=== PATIENT | male | born 1935 | race Caucasian/White ===

== ENCOUNTER 2017-04-24 19:34 | Inpatient (IN) | payer MEDICARE ==
[~2017-04-24] VITALS: Ht 182.9 cm; Wt 82.2 kg
[~2017-04-24 19:34] MED LIST: AMLO10 PO; ASPI81 PO; AVOD0.5C PO; MEVA40TA6 PO; TAB-TAB PO; TERA5CAP34 PO
[2017-04-24 19:35] VITALS: BP 167/84; PULSE 84; RESP 18; TEMP 98; O2SAT 97
[2017-04-24] MEDS ORDERED: FINA5TAB2 PO (19:49)
[2017-04-24] MEDS ORDERED: TERA5CAP3 PO (19:49)
[2017-04-24] MEDS ORDERED: MULTTAB67 PO (19:49)
[2017-04-24] MEDS ORDERED: ASPI81CH CHEW (19:49)
[2017-04-24] MEDS ORDERED: METO25TA3 PO (19:49)
--- NOTE | 2017-04-24 19:57 | PD ---
HPI Chief Complaint: Respiratory Symptoms Time Seen by Provider: 19:49 Travel History International Travel<30 days: No Contact w/Intl Traveler<30days: No Traveled to known affect area: No History of Present Illness HPI 81-year-old male here for evaluation of shortness of breath. Apparently the patient has had exertional dyspnea for the last month. He was seen by warp scouring vat tender Dr. Robert's PA and studies were ordered such as echocardiogram and a stress test, however these tests have not yet been performed. Patient's shortness of breath worsened today, and he noted his blood pressure was 100 systolic. He feels short of breath at rest, worse with exertion. He has an occasional nonproductive cough. He denies chest pain. No fevers or recent illness. No history of DVT or PE. PFSH Past Medical History Hypertension: Yes ?: Not Social History Alcohol Use: No Tobacco Use: No Substance Use: No Allergies-Medications (Allergen,Severity, Reaction): Coded Allergies: ANT Inhibitors (Verified Allergy, Intermediate, 04/24/17) Calcium Channel Blocking Agent Dilt (Verified Allergy, Intermediate, 04/24) Reported Meds & Prescriptions Reported Meds & Active Scripts Active Reported Multiple Vitamin 1 Tab 1 Tab PO DAILY Terazosin (Terazosin HCl) 5 Mg Cap 5 Mg PO HS Metoprolol Tartrate 25 Mg Tab 25 Mg PO DAILY Finasteride 5 Mg Tab 5 Mg PO DAILY Do not crush. Aspirin 81 Mg Chew 81 Mg CHEW DAILY Review of Systems Except as stated in HPI: all other systems reviewed are Neg Physical Exam Narrative GENERAL: Well-developed, well-nourished, comfortable, no apparent distress. SKIN: Focused skin assessment warm/dry. HEAD: Atraumatic. Normocephalic. EYES: Pupils equal and round. No scleral icterus. No injection or drainage. ENT: Mucous membranes pink and moist. NECK: Trachea midline. No JVD. CARDIOVASCULAR: Regular rate and rhythm. RESPIRATORY: No accessory muscle use. Clear to auscultation. Breath sounds equal bilaterally. GASTROINTESTINAL: Abdomen soft, non-tender, nondistended. MUSCULOSKELETAL: No obvious deformities. No clubbing. No cyanosis. Mild bilateral pedal edema. No calf tenderness. NEUROLOGICAL: Awake and alert. No obvious cranial nerve deficits. Motor grossly within normal limits. Normal speech. PSYCHIATRIC: Appropriate mood and affect; insight and judgment normal. Data Data Last Documented VS Vital Signs Date Time Temp Pulse Resp B/P (MAP) Pulse Ox O2 Delivery O2 Flow Rate FiO2 04/24/17 21:04 78 16 134/66 (88) 97 Room Air 04/24/17 20:10 2.00 04/24/17 19:35 98.0 Orders Orders Complete Blood Count With Diff (04/24/17 19:54) Comprehensive Metabolic Panel (04/24/17 19:54) B-Type Natriuretic Peptide (04/24/17 19:54) D-Dimer (04/24/17 19:54) Act Partial Throm Time (Ptt) (04/24/17 19:54) Prothrombin Time / Inr (Pt) (04/24/17 19:54) Ckmb (Isoenzyme) Profile (04/24/17 19:54) Troponin I (04/24/17 19:54) Iv Access Insert/Monitor (04/24/17 19:54) Electrocardiogram (04/24/17 19:54) Ecg Monitoring (04/24/17 19:54) Oximetry (04/24/17 19:54) Oxygen Administration (04/24/17 19:54) Chest, Single Ap (04/24/17 19:54) Sodium Chloride 0.9% Flush (Ns Flush) (04/24/17 20:00) Ct Pulmonary Angiogram (04/24/17 21:13) Type And Screen (04/24/17 21:46) Hemoglobin (Hgb) (04/24/17 21:47) Iodixanol 320 Inj (Rad Ct) (Visipaque 32 (04/24/17 22:17) Red Blood Cells (Rbc) (04/24/17 22:36) Blood Product Administration (04/24/17 22:36) Labs Laboratory Tests Test 04/24/17 20:10 04/24/17 21:25 04/24/17 22:10 Prothrombin Time 11.2 SEC Prothromb Time International Ratio 1.0 RATIO Activated Partial Thromboplast Time 22.2 SEC D-Dimer Quantitative (PE/DVT) 1.75 MG/L FEU Blood Urea Nitrogen 31 MG/DL Creatinine 1.40 MG/DL Random Glucose 115 MG/DL Total Protein 6.9 GM/DL Albumin 3.6 GM/DL Calcium Level 8.9 MG/DL Alkaline Phosphatase 40 U/L Aspartate Amino Transf (AST/SGOT) 20 U/L Alanine Aminotransferase (ALT/SGPT) 29 U/L Total Bilirubin 2.1 MG/DL Sodium Level 137 MEQ/L Potassium Level 3.9 MEQ/L Chloride Level 105 MEQ/L Carbon Dioxide Level 24.5 MEQ/L Anion Gap 8 MEQ/L Estimat Glomerular Filtration Rate 48 ML/MIN Total Creatine Kinase 56 U/L Troponin I LESS THAN 0.02 NG/ML B-Type Natriuretic Peptide 331 PG/ML White Blood Count 3.2 TH/MM3 Red Blood Count 2.15 MIL/MM3 Hemoglobin 5.8 GM/DL 6.0 GM/DL Hematocrit 17.8 % Mean Corpuscular Volume 82.8 FL Mean Corpuscular Hemoglobin 26.9 PG Mean Corpuscular Hemoglobin Concent 32.4 % Red Cell Distribution Width 20.9 % Platelet Count 55 TH/MM3 Mean Platelet Volume 7.0 FL CBC Comment AUTO DIFF MDM Medical Decision Making Medical Screen Exam Complete: Yes Emergency Medical Condition: Yes Differential Diagnosis ACS, CHF, pulmonary edema, pneumothorax, pericarditis, PE, pneumonia Narrative Course Vital signs show heart rate 84, blood pressure 167/84, pulse ox 97% on room air , oral temp of 98F. CBC shows WBC 3.2, hemoglobin 5.8, hematocrit 17.8, platelets 55. CMP is remarkable for BUN 31, creatinine 1.4, GFR 48. Cardiac enzymes are negative. BNP is 331. D-dimer is 1.75. CT pulmonary angiogram: CONCLUSION: No evidence of pulmonary embolism. Mild scarring or atelectasis in the right lung. Possible gallbladder wall thickening Stool is heme negative and brown. The patient and the patient's significant other were made aware of all findings. Case discussed with [facility] Dr. Morrow. Patient will be transfused 2 units of PRBCs and will be admitted for further evaluation of pancytopenia, symptomatic anemia. He would like patient to be admitted to the patient's primary care physician Dr. Celestine Santos Diagnosis Primary Impression: Pancytopenia Additional Impressions: Symptomatic anemia Dyspnea on exertion Admitting Information Admitting Physician Requests: Admit Ankit Matthew MD Apr 24, 2017 19:57
--- NOTE | 2017-04-24 20:28 | RADRPT ---
EXAM DATE/TIME: 04/24/2017 20:12 [facility] COMPARISON: No previous studies available for comparison. INDICATIONS : Shortness of breath. MEDICAL HISTORY : Hypertension. SURGICAL HISTORY : None. ENCOUNTER: Initial ACUITY: 2 weeks PAIN SCORE: 0/10 LOCATION: Bilateral chest FINDINGS: There is mild focal infiltrate in the medial right lung base. Left lung is grossly clear. Cardiac con tours are satisfactory. CONCLUSION: Mild right lung base infiltrate Ar Hampton MD on April 24, 2017 at 20:25 Board Certified Radiologist. This report was verified electronically.
[2017-04-24 20:50] LABS: CHLORIDE 105 MEQ/L (98-107); POTASSIUM 3.9 MEQ/L (3.5-5.1); SODIUM (NA) 137 MEQ/L (136-145)
[2017-04-24 20:54] LABS: ANION GAP 8 MEQ/L (5-15); BICARBONATE 24.5 MEQ/L (21.0-32.0); BLOOD UREA NITROGEN 31 MG/DL (7-18)
[2017-04-24 20:57] LABS: ALT (GPT) 29 U/L (12-78); AST (GOT) 20 U/L (15-37); GLOMERULAR FILTRATION RATE 48 ML/MIN (>89)
[2017-04-24 20:58] LABS: TOTAL BILIRUBIN ADULT 2.1 MG/DL (0.2-1.0)
[2017-04-24 21:00] LABS: ALKALINE PHOSPHATASE 40 U/L (45-117)
[2017-04-24 21:02] LABS: CREATINE KINASE 56 U/L (39-308)
[2017-04-24 21:04] VITALS: BP 134/66; PULSE 78; RESP 16; O2SAT 97
[2017-04-24 21:08] LABS: APTT (PATIENT) 22.2 SEC (24.3-30.1); PROTHROMBIN TIME - PATIENT 11.2 SEC (9.8-11.6)
[2017-04-24 21:35] LABS: MEAN CELL VOLUME 82.8 FL (80.0-100.0); MEAN CORPUSCULAR HEMOGLOBIN 26.9 PG (27.0-34.0); MEAN CORPUSCULAR HGB CONC 32.4 % (32.0-36.0); PLATELET COUNT 55 TH/MM3 (150-450); RED BLOOD COUNT 2.15 MIL/MM3 (4.50-5.90); RED CELL DISTRIBUTION WIDTH 20.9 % (11.6-17.2); WHITE BLOOD COUNT 3.2 TH/MM3 (4.0-11.0)
[2017-04-24 21:45] LABS: HEMO FLAGS AUTO DIFF
[2017-04-24 21:46] LABS: HEMATOCRIT 17.8 % (39.0-51.0)
[2017-04-24] MEDS ORDERED: IODIXANOL 320 MG/ML 10 ML VIAL (for Rad CT) IVCONTRAST ONE (22:17)
--- NOTE | 2017-04-24 22:27 | RADRPT ---
EXAM DATE/TIME: 04/24/2017 21:54 [facility] COMPARISON: No previous studies available for comparison. INDICATIONS : Chest pain. Shortness of breath. IV CONTRAST: 50 cc Visipaque (iodixanol) IV RADIATION DOSE: 15.33 CTDIvol (mGy) MEDICAL HISTORY : Hypertension. SURGICAL HISTORY : None. ENCOUNTER: Initial ACUITY: 1 day PAIN SCALE: 2/10 LOCATION: Bilateral chest TECHNIQUE: Volumetric scanning of the chest was performed using a pulmonary embolism protocol MIP images were re constructed. Using automated exposure control and adjustment of the mA and/or kV according to patien t size, radiation dose was kept as low as reasonably achievable to obtain optimal diagnostic quality images. DICOM format image data is available electronically for review and comparison. Follow-up recommendations for detected pulmonary nodules are based at a minimum on nodule size and pa tient risk factors according to Fleischner Society Guidelines. FINDINGS: PULMONARY ARTERIES: No filling defects are seen in the pulmonary arteries through the segmental level. LUNGS: Mild atelectasis or scarring along the fissures on the right. Minimal atelectasis or scarring in the posterior right lung base. PLEURAE: There is no pleural thickening or pleural effusion. MEDIASTINUM: There is good visualization of the great vessels of the middle mediastinum. No evidence of mediastin al or hilar adenopathy/mass. Coronary calcifications noted. Small hiatal hernia. MUSCULOSKELETAL: Within normal limits for patient age. MISCELLANEOUS: In the visualized upper abdomen, incompletely seen gallbladder appearance suspicious for mild wall th ickening. Multiple left renal cysts. CONCLUSION: No evidence of pulmonary embolism. Mild scarring or atelectasis in the right lung. Possible gallbladder wall thickening Ar Hampton MD on April 24, 2017 at 22:18 Board Certified Radiologist. This report was verified electronically.
[2017-04-24 22:30] VITALS: BP 140/72; PULSE 78; RESP 16; O2SAT 98
[2017-04-24 22:48] LABS: CORRECTED NUCLEATED RBC 3 /100 WBC (0-0); EOSINOPHILS 1 % (0-4); METAMYELOCYTES 5 % (0-1); MYELOCYTES 1 % (0-0); NEUTROPHIL # MANUAL DIFF 1.7 TH/MM3 (1.8-7.7); POLYS (SEG NEUTROPHILS) 47 % (16-70); WBC DIFF SAMPLE 100
[2017-04-24 22:49] LABS: ACANTHOCYTES 2+ (NORMAL); BURR CELLS 1+ (NORMAL); CRENATED RBCS 1+ (NORMAL); KERATOCYTES 2+ (NORMAL); OVALOCYTES 1+ (NORMAL)
[2017-04-24 22:50] LABS: PLATELET ESTIMATE SMEAR LOW (NORMAL); PLATELET MORPHOLOGY NORMAL (NORMAL); SCAN/DIFF FINAL DIFF MANUAL
[2017-04-25] VITALS (13 sets, daily range): BP systolic 131–165; BP diastolic 62–80; PULSE 69–90; RESP 16–24; TEMP 98.2–98.7; O2SAT 96–98
[2017-04-25] MEDS: SODIUM CHLORIDE 0.9% FLUSH 10 ML FLUSH IVF PRN ×2 (01:23→21:56)
[2017-04-25 01:46] LABS: RETIC % 2.6 % (0.4-3.0)
[2017-04-25 01:49] LABS: REVIEW FLAG FINAL
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
[2017-04-25] MEDS: FINASTERIDE 5 MG TAB PO SCH (09:13)
[2017-04-25] MEDS: MULTIVITAMIN TAB PO SCH (09:13)
[2017-04-25 10:27] LABS: BASOPHIL % 0.9 % (0.0-2.0); EOSINOPHIL % 0.6 % (0.0-4.0); HEMATOCRIT 26.3 % (39.0-51.0); LYMPH % 30.6 % (9.0-44.0); MEAN CELL VOLUME 81.8 FL (80.0-100.0); MEAN CORPUSCULAR HEMOGLOBIN 27.9 PG (27.0-34.0); MEAN CORPUSCULAR HGB CONC 34.2 % (32.0-36.0); MONO % 8.6 % (0.0-8.0); NEUT % 59.3 % (16.0-70.0); PLATELET COUNT 65 TH/MM3 (150-450); RED BLOOD COUNT 3.21 MIL/MM3 (4.50-5.90); RED CELL DISTRIBUTION WIDTH 18.3 % (11.6-17.2); WHITE BLOOD COUNT 3.3 TH/MM3 (4.0-11.0)
[2017-04-25 10:30] LABS: CHLORIDE 107 MEQ/L (98-107); SODIUM (NA) 140 MEQ/L (136-145)
[2017-04-25 10:34] LABS: ANION GAP 9 MEQ/L (5-15); BLOOD UREA NITROGEN 23 MG/DL (7-18)
[2017-04-25 10:35] LABS: HEMO FLAGS AUTO DIFF
[2017-04-25 10:37] LABS: ALT (GPT) 30 U/L (12-78); AST (GOT) 23 U/L (15-37); GLOMERULAR FILTRATION RATE 64 ML/MIN (>89)
[2017-04-25 10:59] LABS: BLOOD, URINE NEG (NEG); GLUCOSE,URINE NEG (NEG); KETONE, URINE NEG (NEG); NITRITE,URINE NEG (NEG); PH, URINE 5.5 (5.0-8.5)
[2017-04-25 11:06] LABS: METHOD OF COLLECTION CLEAN CATCH; URINE COLOR YELLOW (YELLW/STRAW)
[2017-04-25 11:07] LABS: COMMENT (UR) CULT NOT INDICATED; CULTURE IF INDICATED CULT NOT INDICATED; SQUAMOUS EPITHELIAL CELL URINE 0-5 /hpf (0-5)
[2017-04-25 11:24] LABS: ALKALINE PHOSPHATASE 42 U/L (45-117); TOTAL BILIRUBIN ADULT 6.1 MG/DL (0.2-1.0)
--- NOTE | 2017-04-25 11:53 | ECHRPT ---
Indication: Shortness of breath CONCLUSIONS The left ventricular systolic function is normal with an estimated ejection fraction in the range of 55-60%. Normal left ventricular size. Wall thickness is normal. No regional wall motion abnormalities are present. Mild thickening of the mitral valve leaflets. Moderate mitral valve regurgitation with calcified subvalvular appartus Aortic valve sclerosis is present. There is severe tricuspid regurgitation. The estimated pulmonary arterial pressure is 78.6 mmHg. Dilated inferior vena cava with poor inspiration collapse consistent with elevated right atrial pres sure. BP: 143 / 69 HR: 88 Rhythm: Sinus MEASUREMENTS (Male / Female) Normal Values Technical Quality:Poor 2D ECHO LV Diastolic Diameter PLAX 3.7 cm 4.2 - 5.9 / 3.9 - 5.3 cm LV Systolic Diameter PLAX 2.6 cm IVS Diastolic Thickness 1.1 cm 0.6 - 1.0 / 0.6 - 0.9 cm LVPW Diastolic Thickness 1.1 cm 0.6 - 1.0 / 0.6 - 0.9 cm LV Relative Wall Thickness 0.6 RV Internal Dim ED PLAX 2.5 cm LVOT Diameter 2.0 cm LA Systolic Diameter LX 3.7 cm 3.0 - 4.0 / 2.7 - 3.8 cm LV Ejection Fraction MOD 4C 60.6 % LV Cardiac Index MOD 4C 2407.2 cm/minm LV Ejection Fraction 4C AL 62.1 % LV Cardiac Index 4C AL 2520.6 cm/minm DOPPLER AV Peak Velocity 167.0 cm/s AV Peak Gradient 11.2 mmHg LVOT Peak Velocity 82.4 cm/s LVOT Peak Gradient 2.7 mmHg AV Area Cont Eq pk 1.6 cm MV Area PHT 3.9 cm Mitral E Point Velocity 84.4 cm/s Mitral A Point Velocity 93.3 cm/s Mitral E to A Ratio 0.9 LV E' Lateral Velocity 11.5 cm/s Mitral E to LV E' Lateral Ratio 7.3 LV E' Septal Velocity 6.8 cm/s Mitral E to LV E' Septal Ratio 12.4 TR Peak Velocity 414.0 cm/s TR Peak Gradient 68.6 mmHg Right Atrial Pressure 10.0 mmHg Pulmonary Artery Systolic Pressu 78.6 mmHg Right Ventricular Systolic Press 78.6 mmHg PV Peak Velocity 97.7 cm/s PV Peak Gradient 3.8 mmHg FINDINGS LEFT VENTRICLE The left ventricular systolic function is normal with an estimated ejection fraction in the range of 55-60%. Normal left ventricular size. Wall thickness is normal. No regional wall motion abnormalities are present. RIGHT VENTRICLE Normal right ventricular size and systolic function. LEFT ATRIUM The left atrial size is normal. RIGHT ATRIUM The right atrial size is normal. ATRIAL SEPTUM Normal atrial septal thickness without atrial level shunting by limited color doppler interrogation. AORTA The aortic root and proximal ascending aorta are normal in size on limited imaging. MITRAL VALVE Mild thickening of the mitral valve leaflets. Moderate mitral valve regurgitation. AORTIC VALVE Trileaflet aortic valve. No aortic valve stenosis or regurgitation. Aortic valve sclerosis is present. TRICUSPID VALVE Structurally normal tricuspid valve. There is severe tricuspid regurgitation. The estimated pulmonary arterial pressure is 78.6 mmHg. PULMONARY VALVE No pulmonary valve regurgitation or stenosis. VESSELS Dilated inferior vena cava with poor inspiration collapse consistent with elevated right atrial pres sure. PERICARDIUM No pericardial effusion. Chance Luis MD, FACC, [facility] [place] (Electronically Signed) Final Date:25 April 2017 11:51
[2017-04-25 12:07] LABS: BANDS 2 % (0-6); BLASTS 1 % (0-0); CORRECTED NUCLEATED RBC 10 /100 WBC (0-0); METAMYELOCYTES 5 % (0-1); MYELOCYTES 5 % (0-0); POLYS (SEG NEUTROPHILS) 53 % (16-70); WBC DIFF SAMPLE 100
[2017-04-25 12:08] LABS: OVALOCYTES 1+ (NORMAL)
[2017-04-25 12:09] LABS: KERATOCYTES 1+ (NORMAL); PLATELET ESTIMATE SMEAR LOW (NORMAL); PLATELET MORPHOLOGY NORMAL (NORMAL); SCAN/DIFF FINAL DIFF MANUAL
[2017-04-25 14:00] LABS: TRANSFERRIN IRON PROFILE 218 MG/DL (200-360)
[2017-04-25 14:24] LABS: FERRITIN 395 NG/ML (26-388)
--- NOTE | 2017-04-25 15:21 | EKG ---
Date Performed: 04/24/2017 Time Performed: 20:19:58 PTAGE: 81 years EKG: Sinus rhythm WITH OCCASIONAL VENTRICULAR PREMATURE COMPLEXES BORDERLINE ECG Compared to prior tracing no signific ant change PREVIOUS TRACING : 04/16/2007 10.56 DOCTOR: Chance Luis Interpretating Date/Time 04/25/2017 15:20:19
--- NOTE | 2017-04-25 15:53 | RADRPT ---
EXAM DATE/TIME: 04/25/2017 14:55 [facility] COMPARISON: No previous studies available for comparison. INDICATIONS : Abnormal lab values. ETOH use. MEDICAL HISTORY : Hypercholesterolemia. Congestive heart failure. Hypertension. Dyspnea. UTI. Cirrhosis. SURGICAL HISTORY : TURP. ENCOUNTER: Initial ACUITY: 1 day PAIN SCORE: 0/10 LOCATION: Abdomen. MEASUREMENTS: LIVER: 18.9 cm length COMMON DUCT: 3 mm RIGHT KIDNEY: 11.3 x 5.7 x 5.2 cm SPLEEN: 11.4 cm length FINDINGS: LIVER: Homogeneous echotexture without focal lesion or ductal dilatation. Hepatopedal flow is seen in the p ortal vein. COMMON DUCT: No intraluminal mass or stone visualized. GALLBLADDER: Gallbladder wall is mildly thickened measuring up to 5 mm. There are several areas of ringdown artif act from the non-dependent wall suggesting possible adenomyomatosis. No pericholecystic fluid. No e chogenic or shadowing stones seen. PANCREAS: The visualized portions are within normal limits. RIGHT KIDNEY: No hydronephrosis, stone or mass. SPLEEN: No focal lesion. CONCLUSION: 1. Hepatomegaly without focal lesion. 2. No gallstones seen. Possible adenomyomatosis. Anders Vanegas MD on April 25, 2017 at 15:50 Board Certified Radiologist. This report was verified electronically.
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
[2017-04-25] MEDS: TERAZOSIN HCL 5 MG CAP PO SCH (21:46)
--- NOTE | 2017-04-25 22:16 | EKG ---
Date Performed: 04/25/2017 Time Performed: 10:05:39 PTAGE: 81 years EKG: Sinus rhythm NORMAL ECG PREVIOUS TRACING : 04/24/2017 20.19 Compared to prior tracing no significant change DOCTOR: Britton Gage Interpretating Date/Time 04/25/2017 22:15:17
[2017-04-26] VITALS (11 sets, daily range): BP systolic 111–155; BP diastolic 61–73; PULSE 74–90; RESP 22–32; TEMP 98.2–99; O2SAT 93–98
[2017-04-26 05:17] LABS: AUTOMATED NEUTROPHIL # 1.3 TH/MM3 (1.8-7.7); BASOPHIL % 0.6 % (0.0-2.0); EOSINOPHIL % 1.2 % (0.0-4.0); HEMATOCRIT 22.9 % (39.0-51.0); LYMPH % 43.1 % (9.0-44.0); LYMPHOCYTE # 1.3 TH/MM3 (1.0-4.8); MEAN CELL VOLUME 82.9 FL (80.0-100.0); MEAN CORPUSCULAR HEMOGLOBIN 28.6 PG (27.0-34.0); MEAN CORPUSCULAR HGB CONC 34.5 % (32.0-36.0); MONO % 8.8 % (0.0-8.0); NEUT % 46.3 % (16.0-70.0); PLATELET COUNT 44 TH/MM3 (150-450); RED BLOOD COUNT 2.77 MIL/MM3 (4.50-5.90); RED CELL DISTRIBUTION WIDTH 17.5 % (11.6-17.2); WHITE BLOOD COUNT 2.9 TH/MM3 (4.0-11.0)
[2017-04-26 05:21] LABS: HEMO FLAGS AUTO DIFF
[2017-04-26 05:23] LABS: CHLORIDE 109 MEQ/L (98-107); SODIUM (NA) 143 MEQ/L (136-145)
[2017-04-26 05:28] LABS: ANION GAP 8 MEQ/L (5-15); BICARBONATE 26.4 MEQ/L (21.0-32.0); BLOOD UREA NITROGEN 21 MG/DL (7-18)
[2017-04-26 05:31] LABS: ALT (GPT) 26 U/L (12-78); AST (GOT) 21 U/L (15-37); GLOMERULAR FILTRATION RATE 64 ML/MIN (>89)
[2017-04-26 05:32] LABS: TOTAL BILIRUBIN ADULT 4.8 MG/DL (0.2-1.0)
[2017-04-26 05:34] LABS: ALKALINE PHOSPHATASE 38 U/L (45-117)
[2017-04-26 07:24] LABS: BANDS 2 % (0-6); CORRECTED NUCLEATED RBC 2 /100 WBC (0-0); EOSINOPHILS 1 % (0-4); METAMYELOCYTES 5 % (0-1); MYELOCYTES 4 % (0-0); NEUTROPHIL # MANUAL DIFF 1.5 TH/MM3 (1.8-7.7); POLYS (SEG NEUTROPHILS) 40 % (16-70); PROMYELOCYTES 1 % (0-0); WBC DIFF SAMPLE 100
[2017-04-26 07:25] LABS: ACANTHOCYTES 1+ (NORMAL); OVALOCYTES 1+ (NORMAL); PLATELET ESTIMATE SMEAR LOW (NORMAL); PLATELET MORPHOLOGY NORMAL (NORMAL); SCAN/DIFF FINAL DIFF MANUAL
[2017-04-26 07:26] LABS: KERATOCYTES 2+ (NORMAL)
--- NOTE | 2017-04-26 07:29 | HHI.PR ---
Subjective Remarks Feeling much better after blood transfusion. Denies any shortness of breath but admittedly has not been up out of the bed walking around or doing any exertional activity. It is noted that patient was very physically active prior to his episodes of shortness of breath and fatigue over the last month retired. Reports that he would work 45 minutes or so on the elliptical and lift weights nearly everyday of the week with no chest pain. Objective Vitals Vital Signs Date Time Temp Pulse Resp B/P (MAP) Pulse Ox O2 Delivery O2 Flow Rate FiO2 04/26/17 04:00 98.5 80 27 137/73 (94) 98 04/26/17 00:00 76 25 133/64 (87) 04/25/17 20:04 98.5 72 23 131/67 (88) 96 04/25/17 20:00 69 04/25/17 16:07 98.5 82 20 160/70 (100) 97 04/25/17 12:00 98.5 74 20 140/69 (92) 96 04/25/17 09:30 82 22 154/76 (102) 96 04/25/17 08:05 98.3 90 24 165/80 96 04/25/17 08:05 98.3 90 24 165/80 (108) 96 04/25/17 08:00 81 GENERAL: Awake, alert and oriented. No acute distress. Cooperative. SKIN: Warm and dry. Appear slightly jaundiced. HEAD: Normocephalic. EYES: No injection or drainage. Neck shotty motions intact. NECK: Supple, trachea midline. No JVD or lymphadenopathy. CARDIOVASCULAR: Regular rate and rhythm without murmurs, gallops, or rubs. RESPIRATORY: Breath sounds equal bilaterally. No accessory muscle use. GASTROINTESTINAL: Abdomen soft, non-tender, nondistended. Bowel sounds normal. MUSCULOSKELETAL: No cyanosis, or edema. Moves all extremities well. Strength 5 out of 54. BACK: No CVA tenderness. Result Diagram: 04/26/1743904/26/17439 Imaging Last [address] Angiography 04/24/172112 Signed Impressions: Service Date/Time: Monday, April 24, 2017 21:54 - CONCLUSION: No evidence of pulmonary embolism. Mild scarring or atelectasis in the right lung. Possible gallbladder wall thickening Ar Hampton MD Chest X-Ray 04/24/171953 Signed Impressions: Service Date/Time: Monday, April 24, 2017 20:12 - CONCLUSION: Mild right lung base infiltrate Ar Hampton MD Urinary Catheter: No Vascular Central Line Catheter: No A/P Problem List: (1) Dyspnea on exertion ICD Codes: R06.09 - Other forms of dyspnea Status: Acute Plan: Possibly multifactorial but most likely associated with the significant anemia given the significant improvement in his reported dyspnea and energy status post transfusion. He has current ongoing outpatient evaluation. Chest x-ray noted for slight infiltrate. Patient does not appear to have clinical pneumonia. Echo noted with tricuspid regurgitation and pulmonary hypertension which could be contributing to his dyspnea as well. Doubt significant ischemic disease given his history of physical activity without any chest pain or dyspnea prior to the anemia, his normal troponins and essentially unremarkable EKGs. We'll not pursue stress testing at this point unless he does have progression of symptoms or develops chest discomfort. (2) Pancytopenia ICD Codes: D61.818 - Other pancytopenia Status: Acute Plan: Appreciate hematology input. CT-guided biopsy planned. We'll try to keep hemoglobin above 8 per hematology recommendations. His platelet count is less than 50 today so I'm not sure if radiology will be able to perform CT-guided biopsy but I have placed a call to them however no radiologist is present in interventional radiology until 8:00 this morning per tech report. We'll give another unit of packed red cells. (3) Symptomatic anemia ICD Codes: D64.9 - Anemia, unspecified Status: Acute Plan: As above. (4) Hypertension ICD Codes: I10 - Essential (primary) hypertension Status: Chronic Plan: Good control. We'll hold medication for now. (5) BPH (benign prostatic hyperplasia) ICD Codes: N40.0 - Benign prostatic hyperplasia without lower urinary tract symptoms Status: Chronic Plan: Continue medication. Discharge Planning Will depend on clinical progress and stability of CBC parameters. Plan discharge in next 1-2 days if he remains clinically stable and symptoms improve. Problem Qualifiers (1) Hypertension: Qualified Codes: I10 - Essential (primary) hypertension Chris Morrow MD PhD Apr 26, 2017 07:29
[2017-04-26 07:56] LABS: INDIRECT BILIRUBIN 4.4 MG/DL (0.0-0.8)
[2017-04-26] MEDS: PANTOPRAZOLE SOD 20 MG DELAYED RELEASE TAB PO SCH (09:00)
[2017-04-26] MEDS: FINASTERIDE 5 MG TAB PO SCH (09:00)
[2017-04-26] MEDS: MULTIVITAMIN TAB PO SCH (09:00)
[2017-04-26] MEDS ORDERED: MIDAZOLAM HCL 2 MG/2 ML VIAL IV ONE (13:10)
[2017-04-26 13:20] LABS: LDH SERUM 401 U/L (87-241)
--- NOTE | 2017-04-26 14:04 | PD.RAD ---
Post CT Procedure Prog Note Pre Procedure Diagnosis: (1) Pancytopenia Post Procedure Diagnosis: (1) Pancytopenia Procedure Date: Apr 26, 2017 Supervising Radiologist: Chandu Ortega Plan of Activity Patient to Unit: Critical Care Patient Condition: Good See PACS Report for procedural detail/treatment Biopsy Imaging Guidance: CT Side: Left Biopsy Procedure: Bone Marrow ([place]) Specimen: Core Biopsy, Fine Needle Aspirate Fluid Description: Bloody Findings: First aspirates clotted. Repeated aspirate with adequate samples Chandu Ortega MD Apr 26, 2017 14:04
[2017-04-26] MEDS ORDERED: LIDOCAINE HCL 1% 30 ML VIAL OTHER ONE (15:01)
[2017-04-26 16:56] LABS: BONE MARROW PROCESSING COMPLETE; IRON STAIN DONE; JENNER GIEMSA STAIN DONE
--- NOTE | 2017-04-26 17:05 | RADRPT ---
EXAM DATE/TIME: 04/26/2017 13:22 [facility] COMPARISON: No previous studies available for comparison. INDICATIONS : Pancytopenia. SEDATION TIME: 30 minutes BIOPSY SITE: Left ischium MEDICATION(S): 1.) 2 mg midazolam (Versed) IV 2.) 100 mcg fentanyl (Sublimaze) IV DEVICE(S): 1.) 11 gauge Bone marrow biopsy needle MEDICAL HISTORY : Congestive heart failure. Hypertension. SURGICAL HISTORY : TURP ENCOUNTER: Initial ACUITY: 1 day PAIN SCORE: 0/10 LOCATION: Left ischial tuberosity A total of one core specimen(s) were obtained and sent to the laboratory for pathologic evaluation. PROCEDURE: 1. CT guided bone marrow biopsy. 2. Conscious sedation with continuous EKG and oximetry monitoring. 3. EKG and oximetry remained stable throughout the procedure. Prior to the procedure informed consent was obtained. Any appropriate prior imaging studies were rev iewed. Using automated exposure control and adjustment of the mA and/or kV according to patient size , radiation dose was kept as low as reasonably achievable to obtain optimal diagnostic quality images . DICOM format image data is available electronically for review and comparison. The site was prepped in a sterile fashion. Full sterile technique was used, including cap, mask, blas rile gloves and gown and a large sterile sheet. Hand hygiene and 2% chlorhexidine and/or betadine/al cohol prep was utilized per protocol for cutaneous antisepsis. The skin and subcutaneous tissues wer e infiltrated with local anesthetic solution. With CT guidance the previously identified target was localized. Biopsy was performed using the presc ribed needle as above. Following biopsy marrow aspiration was performed with repeat puncture. Initia l aspirate clotted. Therefore, needle was readjusted and aspiration repeated. Adequate hemostasis wa s obtained with compression at the puncture site. Follow-up CT scan reveals no hemorrhage. Conscious sedation was performed with the prescribed dosages and duration as above in the presence of an independent trained radiology nurse to assist in the monitoring of the patient. EKG and oximetry remained stable throughout the procedure. The patient tolerated the procedure well and there were no complications. The patient was sent to Radiology Outpatient Unit in stable condition. CONCLUSION: 1. Uncomplicated CT guided bone marrow aspirate. 2. Uncomplicated CT guided bone marrow biopsy. Chandu Ortega MD on April 26, 2017 at 17:02 Board Certified Radiologist. This report was verified electronically.
[2017-04-26 17:30] LABS: AUTOMATED NEUTROPHIL # 1.8 TH/MM3 (1.8-7.7); BASOPHIL % 0.7 % (0.0-2.0); EOSINOPHIL % 0.6 % (0.0-4.0); HEMATOCRIT 26.1 % (39.0-51.0); LYMPH % 32.1 % (9.0-44.0); MEAN CELL VOLUME 82.6 FL (80.0-100.0); MEAN CORPUSCULAR HEMOGLOBIN 27.8 PG (27.0-34.0); MEAN CORPUSCULAR HGB CONC 33.7 % (32.0-36.0); MONO % 8.9 % (0.0-8.0); NEUT % 57.7 % (16.0-70.0); PLATELET COUNT 109 TH/MM3 (150-450); RED BLOOD COUNT 3.17 MIL/MM3 (4.50-5.90); RED CELL DISTRIBUTION WIDTH 17.1 % (11.6-17.2); WHITE BLOOD COUNT 3.1 TH/MM3 (4.0-11.0)
--- NOTE | 2017-04-26 17:32 | PD.ONC.PN ---
Subjective Subjective Remarks SOB has resolved. Has not tried to walk as yet Objective Data Date Time Temp Pulse Resp B/P (MAP) Pulse Ox O2 Delivery O2 Flow Rate FiO2 04/26/17 17:00 98.2 82 26 139/67 (91) 04/26/17 16:58 82 26 132/64 (86) 04/26/17 16:00 90 32 04/26/17 12:31 80 25 153/72 (99) 04/26/17 12:00 80 25 146/73 (97) 04/26/17 10:00 98.7 81 22 155/72 98 04/26/17 08:00 98.5 77 22 130/72 (91) 98 04/26/17 08:00 90 04/26/17 04:00 98.5 80 27 137/73 (94) 98 04/26/17 00:00 76 25 133/64 (87) 04/25/17 20:04 98.5 72 23 131/67 (88) 96 04/25/17 20:00 69 04/26/17 04/26/17 04/26/17 07:00 15:00 23:00 Intake Total 120 ml 763 ml Output Total 650 ml Balance -530 ml 763 ml Result Diagram: 04/26/17 0440 04/26/17 0440 Laboratory Results Laboratory Tests Test 04/26/17 04:40 04/26/17 14:14 04/26/17 17:05 White Blood Count 2.9 TH/MM3 Red Blood Count 2.77 MIL/MM3 Hemoglobin 7.9 GM/DL Hematocrit 22.9 % Mean Corpuscular Volume 82.9 FL Mean Corpuscular Hemoglobin 28.6 PG Mean Corpuscular Hemoglobin Concent 34.5 % Red Cell Distribution Width 17.5 % Platelet Count 44 TH/MM3 Mean Platelet Volume 7.7 FL Neutrophils (%) (Auto) 46.3 % Lymphocytes (%) (Auto) 43.1 % Monocytes (%) (Auto) 8.8 % Eosinophils (%) (Auto) 1.2 % Basophils (%) (Auto) 0.6 % Neutrophils # (Auto) 1.3 TH/MM3 Lymphocytes # (Auto) 1.3 TH/MM3 Monocytes # (Auto) 0.3 TH/MM3 Eosinophils # (Auto) 0.0 TH/MM3 Basophils # (Auto) 0.0 TH/MM3 CBC Comment AUTO DIFF Differential Total Cells Counted 100 Neutrophils % (Manual) 40 % Band Neutrophils % 2 % Lymphocytes % 41 % Monocytes % 6 % Eosinophils % 1 % Neutrophils # (Manual) 1.5 TH/MM3 Metamyelocytes 5 % Myelocytes 4 % Promyelocytes 1 % Nucleated Red Blood Cells 2 /100 WBC Differential Comment FINAL DIFF MANUAL Platelet Estimate LOW Platelet Morphology Comment NORMAL Ovalocytes 1+ Acanthocytes 1+ Keratocytes 2+ Blood Urea Nitrogen 21 MG/DL Creatinine 1.10 MG/DL Random Glucose 86 MG/DL Total Protein 6.5 GM/DL Albumin 3.3 GM/DL Calcium Level 8.8 MG/DL Alkaline Phosphatase 38 U/L Aspartate Amino Transf (AST/SGOT) 21 U/L Alanine Aminotransferase (ALT/SGPT) 26 U/L Lactate Dehydrogenase 401 U/L Total Bilirubin 4.8 MG/DL Direct Bilirubin 0.4 MG/DL Sodium Level 143 MEQ/L Potassium Level 4.0 MEQ/L Chloride Level 109 MEQ/L Carbon Dioxide Level 26.4 MEQ/L Anion Gap 8 MEQ/L Estimat Glomerular Filtration Rate 64 ML/MIN Indirect Bilirubin 4.4 MG/DL Imaging Studies Last 24 hours Impressions Bone Biopsy CT 04/26/17 1030 Signed Impressions: Service Date/Time: Wednesday, April 26, 2017 13:22 - CONCLUSION: 1. Uncomplicated CT guided bone marrow aspirate. 2. Uncomplicated CT guided bone marrow biopsy. Chandu Ortega MD Administered Medications Medications (Trade) Dose Ordered Sig/Ashwin Route PRN Reason Start Time Stop Time Status Last Admin Dose Admin Sodium Chloride (NS Flush) 2 ml UNSCH PRN IVF FLUSH AFTER USING IV ACCESS 04/24/17 20:00 04/25/17 21:56 Finasteride (Proscar) 5 mg DAILY PO 04/25/17 09:00 04/25/17 09:13 Terazosin HCl (Hytrin) 5 mg HS PO 04/25/17 21:00 04/25/17 21:46 Multivitamins (Theragran) 1 tab DAILY PO 04/25/17 09:00 04/25/17 09:13 Objective Remarks GENERAL: Well-nourished, well-developed patient. SKIN: Warm and dry. HEAD: Normocephalic. EYES: No scleral icterus. No injection or drainage. NECK: Supple, trachea midline. No JVD or lymphadenopathy. LYMPHATIC: No adenopathy. CARDIOVASCULAR: Regular rate and rhythm without murmurs. RESPIRATORY: Breath sounds equal bilaterally. No accessory muscle use. GASTROINTESTINAL: Abdomen soft, non-tender, nondistended. EXTREMITIES: No cyanosis, or edema. MUSCULOSKELETAL: Adequate muscle tone. NEUROLOGICAL: No obvious focal deficit. Awake, alert, and oriented x3. PSYCHIATRIC: Appropriate mood and affect; insight and judgment normal. Assessment/Plan Problem List: (1) Pancytopenia ICD Codes: D61.818 - Other pancytopenia Status: Acute Plan: s/p BM bx today. hg 7.9 today. OK to transfer to regular floor. OK to ambulate monitor cbc and tx support Alejandro Roque MD Apr 26, 2017 17:32
[2017-04-26 17:36] LABS: HEMO FLAGS AUTO DIFF
[2017-04-26 19:00] LABS: ACANTHOCYTES 1+ (NORMAL); KERATOCYTES 2+ (NORMAL); OVALOCYTES 1+ (NORMAL)
[2017-04-26 19:01] LABS: CRENATED RBCS 2+ (NORMAL); SCAN/DIFF AUTO DIFF CONFIRMED
[2017-04-26] MEDS: TERAZOSIN HCL 5 MG CAP PO SCH (21:24)
[2017-04-27] VITALS (19 sets, daily range): BP systolic 103–159; BP diastolic 57–80; PULSE 70–94; RESP 18–37; TEMP 97.8–99.1; O2SAT 95–99
[2017-04-27 05:24] LABS: AUTOMATED NEUTROPHIL # 1.5 TH/MM3 (1.8-7.7); BASOPHIL % 0.4 % (0.0-2.0); EOSINOPHIL % 0.9 % (0.0-4.0); HEMATOCRIT 24.5 % (39.0-51.0); LYMPH % 39.6 % (9.0-44.0); LYMPHOCYTE # 1.2 TH/MM3 (1.0-4.8); MEAN CELL VOLUME 83.4 FL (80.0-100.0); MEAN CORPUSCULAR HEMOGLOBIN 27.8 PG (27.0-34.0); MEAN CORPUSCULAR HGB CONC 33.3 % (32.0-36.0); MONO % 9.8 % (0.0-8.0); NEUT % 49.3 % (16.0-70.0); PLATELET COUNT 74 TH/MM3 (150-450); RED BLOOD COUNT 2.94 MIL/MM3 (4.50-5.90); RED CELL DISTRIBUTION WIDTH 16.7 % (11.6-17.2)
[2017-04-27 05:29] LABS: CHLORIDE 109 MEQ/L (98-107); SODIUM (NA) 142 MEQ/L (136-145)
[2017-04-27 05:35] LABS: HEMO FLAGS AUTO DIFF
[2017-04-27 05:36] LABS: BLOOD UREA NITROGEN 23 MG/DL (7-18)
[2017-04-27 05:37] LABS: ANION GAP 7 MEQ/L (5-15); BICARBONATE 26.3 MEQ/L (21.0-32.0)
[2017-04-27 05:40] LABS: ALT (GPT) 27 U/L (12-78); AST (GOT) 20 U/L (15-37); GLOMERULAR FILTRATION RATE 71 ML/MIN (>89)
[2017-04-27 05:41] LABS: TOTAL BILIRUBIN ADULT 4.4 MG/DL (0.2-1.0)
[2017-04-27 05:42] LABS: ALKALINE PHOSPHATASE 39 U/L (45-117)
[2017-04-27 05:52] LABS: ACANTHOCYTES 1+ (NORMAL); BANDS 4 % (0-6); EOSINOPHILS 2 % (0-4); METAMYELOCYTES 4 % (0-1); MYELOCYTES 2 % (0-0); NEUTROPHIL # MANUAL DIFF 1.7 TH/MM3 (1.8-7.7); OVALOCYTES 1+ (NORMAL); POLYS (SEG NEUTROPHILS) 45 % (16-70); TEARDROP RBCS 1+ (NORMAL); WBC DIFF SAMPLE 100
[2017-04-27 05:53] LABS: PLATELET ESTIMATE SMEAR LOW (NORMAL); PLATELET MORPHOLOGY NORMAL (NORMAL); SCAN/DIFF FINAL DIFF MANUAL
--- NOTE | 2017-04-27 06:36 | HHI.PR ---
Subjective Remarks Clinically feels improved. Noted that he did get a bit winded walking from his room to get on the stretcher yesterday and from the stretcher to the CT scanner , but not nearly as severe as when he presented to the hospital he reports. Denies any chest pain. Objective Vitals Vital Signs Date Time Temp Pulse Resp B/P (MAP) Pulse Ox O2 Delivery O2 Flow Rate FiO2 04/27/17 04:00 98.9 72 21 120/57 (78) 98 04/27/17 03:45 72 24 118/74 (89) 98 04/27/17 02:15 78 24 04/27/17 02:00 94 32 126/58 (80) 04/27/17 02:00 94 32 126/58 (80) 04/27/17 01:45 70 24 04/27/17 01:30 72 22 04/27/17 01:15 72 23 04/27/17 01:00 72 22 04/27/17 00:45 72 21 04/27/17 00:30 72 22 04/27/17 00:15 82 37 04/27/17 00:00 78 25 103/59 (74) 04/27/17 00:00 78 25 103/59 (74) 04/26/17 22:00 74 24 111/61 (78) 94 04/26/17 20:00 84 04/26/17 20:00 99.0 82 28 147/66 (93) 93 04/26/17 17:00 98.2 82 26 139/67 (91) 04/26/17 16:58 82 26 132/64 (86) 04/26/17 16:00 90 32 04/26/17 12:31 80 25 153/72 (99) 04/26/17 12:00 80 25 146/73 (97) 04/26/17 10:00 98.7 81 22 155/72 98 04/26/17 08:00 98.5 77 22 130/72 (91) 98 04/26/17 08:00 90 GENERAL: Awake, alert and oriented. No acute distress. Cooperative. Sitting on side of bed. SKIN: Warm and dry. Still appears slightly jaundiced. HEAD: Normocephalic. EYES: No injection or drainage. Extra ocular motions intact. Minimal inferior scleral icterus. NECK: Supple, trachea midline. No JVD or lymphadenopathy. CARDIOVASCULAR: Regular rate and rhythm without murmurs, gallops, or rubs. Heart sounds are a bit distant. RESPIRATORY: Breath sounds equal bilaterally. No accessory muscle use. GASTROINTESTINAL: Abdomen soft, non-tender, nondistended. Bowel sounds normal. MUSCULOSKELETAL: No cyanosis, or edema. Moves all extremities well. Strength 5 out of 54. BACK: No CVA tenderness. Result Diagram: 04/27/175 04/27/175 Imaging Last [address] Angiography 04/24/172112 Signed Impressions: Service Date/Time: Monday, April 24, 2017 21:54 - CONCLUSION: No evidence of pulmonary embolism. Mild scarring or atelectasis in the right lung. Possible gallbladder wall thickening Ar Hampton MD Chest X-Ray 04/24/171953 Signed Impressions: Service Date/Time: Monday, April 24, 2017 20:12 - CONCLUSION: Mild right lung base infiltrate Ar Hampton MD Urinary Catheter: No Vascular Central Line Catheter: No A/P Problem List: (1) Dyspnea on exertion ICD Codes: R06.09 - Other forms of dyspnea Status: Acute Plan: Possibly multifactorial but most likely associated with the significant anemia given the significant improvement in his reported dyspnea and energy status post transfusion. He has current ongoing outpatient evaluation. Chest x-ray noted for slight infiltrate. Patient does not appear to have clinical pneumonia. Echo noted with tricuspid regurgitation and pulmonary hypertension which could be contributing to his dyspnea as well. Doubt significant ischemic disease given his history of physical activity without any chest pain or dyspnea prior to the anemia, his normal troponins and essentially unremarkable EKGs. We'll have physical therapy walked the patient today to see how he does. If he still become significantly dyspneic, consider stress testing and further cardiac workup. (2) Pancytopenia ICD Codes: D61.818 - Other pancytopenia Status: Acute Plan: Appreciate hematology input. CT-guided biopsy done April 26. Awaiting results. We'll try to keep hemoglobin above 8 per hematology recommendations. Blood cell parameters continued to drift downward after transfusions. Has received total of 3 units of packed red cells and 1 unit of platelets. (3) Symptomatic anemia ICD Codes: D64.9 - Anemia, unspecified Status: Acute Plan: As above. (4) Hypertension ICD Codes: I10 - Essential (primary) hypertension Status: Chronic Plan: Good control. We'll hold medication for now. (5) BPH (benign prostatic hyperplasia) ICD Codes: N40.0 - Benign prostatic hyperplasia without lower urinary tract symptoms Status: Chronic Plan: Continue medication. Discharge Planning Will depend on clinical progress and stability of CBC parameters. Possibly discharge home later today if he does well with walking. If he gets significantly dyspneic, will consider further cardiac eval while inpatient. Discussed plan with pt and his at bedside. Problem Qualifiers (1) Hypertension: Qualified Codes: I10 - Essential (primary) hypertension Chris Morrow MD PhD Apr 27, 2017 06:36
[2017-04-27] MEDS: FINASTERIDE 5 MG TAB PO SCH (09:30)
[2017-04-27] MEDS: MULTIVITAMIN TAB PO SCH (09:30)
[2017-04-27] MEDS: PANTOPRAZOLE SOD 20 MG DELAYED RELEASE TAB PO SCH (09:30)
--- NOTE | 2017-04-27 10:13 | RADRPT ---
EXAM DATE/TIME: 04/27/2017 09:55 [facility] COMPARISON: CHEST SINGLE AP, April 24, 2017, 20:12. INDICATIONS : Dyspnea. MEDICAL HISTORY : Hypercholesterolemia. Congestive heart failure. Hypertension. Dyspnea. UTI. Cirrhosis. SURGICAL HISTORY : TURP. ENCOUNTER: Subsequent ACUITY: 3 days PAIN SCORE: 0/10 LOCATION: chest FINDINGS: PA and lateral views of the chest demonstrate the lungs to be symmetrically aerated without evidence of mass, infiltrate or effusion. The cardiomediastinal contours are unremarkable. Osseous structure s are intact. CONCLUSION: No evidence of acute cardiopulmonary disease. Ar Roland MD on April 27, 2017 at 10:10 Board Certified Radiologist. This report was verified electronically.
--- NOTE | 2017-04-27 12:56 | HHI.PR ---
Addendum to Inpatient Note Addendum Reason: Additional Documentation Additional Information I spoke with pt's . He is doing better. They would like to get stress test in AM instead of next week as outpt. I will give him another unit of blood in the interim and set up stress test. No CP Chris Morrow MD PhD Apr 27, 2017 12:56
[2017-04-27] MEDS: TERAZOSIN HCL 5 MG CAP PO SCH (20:07)
[2017-04-27 22:47] LABS: TOTAL PROTEIN SPE 6.2 GM/DL (6.0-7.6)
[2017-04-28] VITALS: BP 159/78; PULSE 80; RESP 18; TEMP 99.1; O2SAT 99
[2017-04-28 07:16] LABS: AUTOMATED NEUTROPHIL # 1.5 TH/MM3 (1.8-7.7); BASOPHIL % 0.6 % (0.0-2.0); EOSINOPHIL % 1.1 % (0.0-4.0); HEMATOCRIT 26.1 % (39.0-51.0); LYMPH % 35.2 % (9.0-44.0); LYMPHOCYTE # 0.9 TH/MM3 (1.0-4.8); MEAN CELL VOLUME 84.9 FL (80.0-100.0); MEAN CORPUSCULAR HEMOGLOBIN 29.2 PG (27.0-34.0); MEAN CORPUSCULAR HGB CONC 34.4 % (32.0-36.0); MONO % 10.7 % (0.0-8.0); NEUT % 52.4 % (16.0-70.0); PLATELET COUNT 65 TH/MM3 (150-450); RED BLOOD COUNT 3.08 MIL/MM3 (4.50-5.90); RED CELL DISTRIBUTION WIDTH 16.3 % (11.6-17.2); WHITE BLOOD COUNT 2.7 TH/MM3 (4.0-11.0)
[2017-04-28 07:17] LABS: HEMO FLAGS AUTO DIFF
--- NOTE | 2017-04-28 07:33 | HHI.PR ---
Subjective Remarks Patient feeling better with more energy. He was actually walking in the [place] this morning with his . Does still have some mild dyspnea on exertion but overall much improved per his report. Denies chest pain. Awaiting stress test later this morning. Objective Vitals Vital Signs Date Time Temp Pulse Resp B/P (MAP) Pulse Ox O2 Delivery O2 Flow Rate FiO2 04/28/17 00:00 99.1 80 18 159/78 (105) 99 04/27/17 23:10 99.1 80 18 159/78 99 04/27/17 21:05 99.1 85 18 153/80 95 04/27/17 20:29 99.0 85 18 144/73 98 04/27/17 20:00 99.0 85 18 144/73 (96) 98 04/27/17 16:00 97.8 77 20 145/69 (94) 97 04/27/17 12:00 97.8 79 20 139/66 (90) 96 04/27/17 08:00 98.1 80 20 147/69 (95) 96 GENERAL: Awake, alert and oriented. No acute distress. Walking down the [place] with his . SKIN: Warm and dry. Still appears slightly jaundiced. HEAD: Normocephalic. EYES: No injection or drainage. Extra ocular motions intact. Minimal inferior scleral icterus. NECK: Supple, trachea midline. No JVD or lymphadenopathy. CARDIOVASCULAR: Regular rate and rhythm without murmurs, gallops, or rubs. Heart sounds are a bit distant. RESPIRATORY: Breath sounds equal bilaterally. No accessory muscle use. No wheeze. No crackle. GASTROINTESTINAL: Abdomen soft, non-tender, nondistended. Bowel sounds normal. MUSCULOSKELETAL: No cyanosis, or edema. Moves all extremities well. Strength 5 out of 54. BACK: No CVA tenderness. Result Diagram: 04/28/17 0655 04/27/17 0435 Imaging Last [address] Angiography 04/24/172112 Signed Impressions: Service Date/Time: Monday, April 24, 2017 21:54 - CONCLUSION: No evidence of pulmonary embolism. Mild scarring or atelectasis in the right lung. Possible gallbladder wall thickening Ar Hampton MD Chest X-Ray 04/24/171953 Signed Impressions: Service Date/Time: Monday, April 24, 2017 20:12 - CONCLUSION: Mild right lung base infiltrate Ar Hampton MD Urinary Catheter: No Vascular Central Line Catheter: No A/P Problem List: (1) Dyspnea on exertion ICD Codes: R06.09 - Other forms of dyspnea Status: Acute Plan: Possibly multifactorial but most likely associated with the significant anemia given the significant improvement in his reported dyspnea and energy status post transfusion. We'll perform stress test this morning. Repeat chest x-ray with no acute findings. Echo reveals some pulmonary hypertension with tricuspid regurgitation. He will discuss this with cardiology at his visit in approximately 10 days. Hopefully discharge home today if stress test negative. (2) Pancytopenia ICD Codes: D61.818 - Other pancytopenia Status: Acute Plan: Appreciate hematology input. CT-guided biopsy done April 26. Preliminary results reviewed demonstrating pancytopenia of questionable etiology. We'll try to keep hemoglobin above 8 per hematology recommendations. Blood cell parameters continued to drift downward after transfusions. Has received total of 4 units of packed red cells and 1 unit of platelets. (3) Symptomatic anemia ICD Codes: D64.9 - Anemia, unspecified Status: Acute Plan: As above. (4) Hypertension ICD Codes: I10 - Essential (primary) hypertension Status: Chronic Plan: Good control. We'll hold medication for now. (5) BPH (benign prostatic hyperplasia) ICD Codes: N40.0 - Benign prostatic hyperplasia without lower urinary tract symptoms Status: Chronic Plan: Continue medication. Discharge Planning Hopefully discharge home later today after stress test depending on results. Discussed case with patient and his who was present during exam. Problem Qualifiers (1) Hypertension: Qualified Codes: I10 - Essential (primary) hypertension Chris Morrow MD PhD Apr 28, 2017 07:33
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
[2017-04-28 07:50] LABS: BANDS 2 % (0-6); METAMYELOCYTES 2 % (0-1); MYELOCYTES 1 % (0-0); NEUTROPHIL # MANUAL DIFF 1.6 TH/MM3 (1.8-7.7); POLYS (SEG NEUTROPHILS) 53 % (16-70); PROMYELOCYTES 1 % (0-0); WBC DIFF SAMPLE 100
[2017-04-28 07:51] LABS: ACANTHOCYTES 1+ (NORMAL); OVALOCYTES 1+ (NORMAL)
[2017-04-28 07:52] LABS: KERATOCYTES 1+ (NORMAL); PLATELET ESTIMATE SMEAR LOW (NORMAL); PLATELET MORPHOLOGY NORMAL (NORMAL); SCAN/DIFF FINAL DIFF MANUAL
[2017-04-28 08:00] VITALS: BP 152/70; PULSE 79; RESP 20; TEMP 97.6; O2SAT 97
[2017-04-28] MEDS: MULTIVITAMIN TAB PO SCH (09:00)
[2017-04-28] MEDS: FINASTERIDE 5 MG TAB PO SCH (09:00)
[2017-04-28] MEDS: PANTOPRAZOLE SOD 20 MG DELAYED RELEASE TAB PO SCH (09:00)
[2017-04-28] MEDS ORDERED: REGADENOSON INJ 0.4 MG/5 ML SYR IV ONE (09:07)
--- NOTE | 2017-04-28 10:08 | RADRPT ---
EXAM DATE/TIME: 04/28/2017 08:58 [facility] COMPARISON: No previous studies available for comparison. INDICATIONS : Shortness of breath with chest pressure for one month. Congestive heart failure. Angina. DOSE: 25.5 mCi Tc99m Myoview at stress. 8.7 mCi Tc99m Myoview at rest. 0.4 mg Lexiscan STRESS SYMPTOMS: Shortness of breath. EJECTION FRACTION: 59% MEDICAL HISTORY : Benign prostatic hyperplasia, (BPH). Hypertension. SURGICAL HISTORY : TURP. ENCOUNTER: Initial ACUITY: 1 month PAIN SCALE: 1/10 LOCATION: Midsternal chest TECHNIQUE: The patient underwent pharmacologic stress with infusion of prescribed dose. Continuous ECG tracing was monitored during stress. Gated SPECT imaging was performed after stress and conventional SPECT i maging was performed at rest. The examination was performed on a SPECT/CT scanner, both attenuation and non-corrected datasets were reviewed. FINDINGS: DISTRIBUTION: The maximum perfused segment at stress is in the lateral wall. PERFUSION STUDY: The pattern of perfusion at stress is within normal limits, with regional variations in perfusion wit hin 25%. No evidence of redistribution. The summed stress score is zero.. GATED STUDY: There is intact wall motion and thickening without hypokinetic or dyskinetic segments. CONCLUSION: 1. No evidence of stress-induced ischemia. 2. Intact wall motion with 59% ejection fraction. RISK CATEGORY: Low (<1% Annual Mortality Rate) Anders Vanegas MD on April 28, 2017 at 10:05 Board Certified Radiologist. This report was verified electronically.
[2017-04-28 21:13] LABS: ALBUMIN SPE 3.97 GM/DL (3.50-5.00)
[2017-04-28 21:14] LABS: ALPHA 1 GLOBULIN 0.21 GM/DL (0.11-0.29); ALPHA 2 GLOBULIN 0.54 GM/DL (0.22-1.00); BETA GLOBULINS (SPE) 0.63 GM/DL (0.53-1.03)
[2017-04-29 12:32] LABS: URINE TOTAL PROTEIN TIMED 31.1 MG/DL
== END 2017-04-28 11:37 | disposition home or self-care (01) | DRG 810 ==
LOC: PHED 19:34 → PHEDA 22:38 → PHICU 04-25 00:17 → PH3A 04-27 08:22
PROVIDERS: ADMIT Legal Medicine; ATTEND Legal Medicine
PROC: 30233N1 Transfusion of Nonautologous Red Blood Cells into Peripheral Vein, Percutaneous Approach (ICD-10-PCS; principal; 2017-04-24)
PROC: 30233R1 Transfusion of Nonautologous Platelets into Peripheral Vein, Percutaneous Approach (ICD-10-PCS; 2017-04-26)
PROC: 07DR3ZX Extraction of Iliac Bone Marrow, Percutaneous Approach, Diagnostic (ICD-10-PCS; 2017-04-26)
DX: D61.818 Other pancytopenia (principal); I27.20 Pulmonary hypertension, unspecified; I07.1 Rheumatic tricuspid insufficiency; I10 Essential (primary) hypertension; N40.0 Benign prostatic hyperplasia without lower urinary tract symptoms; Z87.891 Personal history of nicotine dependence; Z79.82 Long term (current) use of aspirin
CPT/HCPCS: 36430; 38221; 71010; 71020; 71275; 76705; 77012; 78452; 80053; 81001; 82248; 82550; 82607; 82728; 83010; 83540; 83550; 83615; 83880; 84165; 84443; 84484; 85007; 85018; 85025; 85027; 85044; 85060; 85097; 85379; 85610; 85730; 86038; 86335; 86850; 86900; 86901; 86920; 88184; 88185; 88237; 88264; 88280; 88305; 88311; 88313; 93005; 93017; 93306; A9502; G0364; J2250; J2785; J3010; P9016; P9035; Q9967

== ENCOUNTER → 2017-05-31 | Day surgery (SDC) | payer MEDICARE ==
[~2017-05-31] MED LIST changes: -AMLO10 PO; -ASPI81 PO; -AVOD0.5C PO; +BUPIVACAINE/EPINEPHRINE 0.5% PF 30 ML VIAL ONE; +FINA5TAB2 PO; +HEPARIN SODIUM - IV 10,000 UNITS/10 ML VIAL ONE; +LACTATED RINGER'S 1000 ML INJ 0 ML ONE; +LACTATED RINGER'S 1000 ML INJ 1,000 ML ONE; -MEVA40TA6 PO; +MULTTAB67 PO; +ONDANSETRON HCL 4 MG/2 ML VIAL IV PUSH ONE; +PROPOFOL 200 MG/20 ML AMP IV ONE; +SODIUM CHLORIDE 0.9% 20 ML VIAL ONE; -TAB-TAB PO; +TERA5CAP3 PO; -TERA5CAP34 PO; +ceFAZolin 2 GM PREMIX 0 ML ONE; +ceFAZolin 2 GM PREMIX 50 ML ONE
--- NOTE | 2017-05-31 16:26 | TN ---
cc: LORRAINE LÓPEZ DATE OF SURGERY: 05/31/2017 PRINCIPAL DIAGNOSIS Myelodysplastic syndrome. POSTOPERATIVE DIAGNOSIS Myelodysplastic syndrome. PROCEDURE PERFORMED Left subclavian PowerPort placement. SURGEON Lorraine Gannon MD. 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 He requires frequent transfusions and has limited IV access. Dr. Washington has requested port placement to facilitate further treatment. FINDINGS AT SURGERY Normal left subclavian anatomy was identified. DESCRIPTION OF PROCEDURE: After informed consent was obtained and site verification was performed, the patient was brought to the major operating room where he underwent IV sedation. The right and left chest and neck were prepped and draped in sterile fashion. The left subclavian vein was identified with the patient in the Trendelenburg position via percutaneous cannulation and a J-wire was advanced easily through the central circulation until its position and the right atrium was confirmed with fluoroscopy. The needle was removed and sharp dissection was then performed around the wire to create a subcutaneous pocket for and the catheter and reservoir. The catheter was measured out at 30 cm and cut off. A peel-away sheath and introducer were advanced over the wire and the introducer and wire were then removed. The catheter advanced easily through the peel-away sheath and the sheath was then removed. X-ray demonstrated good position of the catheter tip at 19 cm and it was secured to the reservoir which was noted to flush and aspirate easily. The reservoir was secured to the chest wall with two 2-0 Prolene sutures. Good hemostasis was noted and the wound was closed using interrupted 3-0 Vicryl subcutaneous sutures and a 4-0 Monocryl subcuticular suture. Steri-Strips and a sterile dressing were applied. The patient tolerated the procedure well with minimal blood loss and he was brought to recovery room in good condition. All sponge and needle counts were correct at the conclusion of the case. Chest x-ray is pending at the time of this dictation. MD NATO Stratton/ROBBIE /3:56 PM /4:03 PM
== END | disposition home or self-care (01) ==
LOC: ESDC 12:54
PROVIDERS: ATTEND Surgery
DX: D46.9 Myelodysplastic syndrome, unspecified (principal); D61.818 Other pancytopenia
CPT/HCPCS: 00532; 36561; 77001; C1788; J0690; J1644; J2405; J3010; J7120

== ENCOUNTER 2017-06-15 12:02 | Inpatient (IN) | payer MEDICARE ==
[~2017-06-15] VITALS: Ht 182.9 cm; Wt 80.1 kg
[2017-06-15] VITALS (9 sets, daily range): BP systolic 128–182; BP diastolic 59–84; PULSE 97–127; RESP 12–28; TEMP 98–101; O2SAT 93–99
[~2017-06-15 12:02] MED LIST changes: -BUPIVACAINE/EPINEPHRINE 0.5% PF 30 ML VIAL ONE; -HEPARIN SODIUM - IV 10,000 UNITS/10 ML VIAL ONE; -LACTATED RINGER'S 1000 ML INJ 0 ML ONE; -LACTATED RINGER'S 1000 ML INJ 1,000 ML ONE; -ONDANSETRON HCL 4 MG/2 ML VIAL IV PUSH ONE; -PROPOFOL 200 MG/20 ML AMP IV ONE; -SODIUM CHLORIDE 0.9% 20 ML VIAL ONE; -ceFAZolin 2 GM PREMIX 0 ML ONE; -ceFAZolin 2 GM PREMIX 50 ML ONE
--- NOTE | 2017-06-15 12:40 | PD ---
HPI Chief Complaint: Fever Time Seen by Provider: 12:17 Travel History International Travel<30 days: No Contact w/Intl Traveler<30days: No Traveled to known affect area: No History of Present Illness HPI 81-year-old male with PMH of myelodysplastic syndrome, CHF, HTN presents to the ED for evaluation of fever and shortness of breath. Gradual onset over the last week. The patient denies headaches, dizziness, chest pain, abdominal pain , nausea, vomiting, melena, hematochezia, BRBPR, lower extremity edema. is at bedside and helps to provide the history. She states that the patient had 7 days of chemotherapy last week, blood transfusion 2 days ago and platelet transfusion one week ago. She states that he's been having occasional mild nosebleeds "a drop here and there" for about a week. Patient is followed by Dr. Washington. The patient's called this morning and was told to come to the ED. PFSH Past Medical History Asthma: No Heart Rhythm Problems: No Cancer: No Cardiovascular Problems: Yes High Cholesterol: Yes Chest Pain: No Congestive Heart Failure: Yes (NEW ONSET?) COPD: No Endocrine: No Genitourinary: Yes Hypertension: Yes Immune Disorder: No Musculoskeletal: No Neurologic: No Psychiatric: No Reproductive: No Respiratory: Yes Social History Alcohol Use: No Tobacco Use: No Substance Use: No Allergies-Medications (Allergen,Severity, Reaction): Coded Allergies: ANT Inhibitors (Verified Allergy, Intermediate, 04/24/17) Calcium Channel Blocking Agent Dilt (Verified Allergy, Intermediate, 04/24) Reported Meds & Prescriptions Reported Meds & Active Scripts Active Reported Metoprolol Tartrate 25 Mg Tab 12.5 Mg PO BID Multiple Vitamin 1 Tab 1 Tab PO DAILY Terazosin (Terazosin HCl) 5 Mg Cap 5 Mg PO HS Finasteride 5 Mg Tab 5 Mg PO DAILY Do not crush. Review of Systems Except as stated in HPI: all other systems reviewed are Neg Physical Exam Narrative GENERAL: Well-nourished, well-developed male in no acute distress. SKIN: Focused skin assessment warm/dry. HEAD: Normocephalic. EYES: No scleral icterus. No injection or drainage. ENT: There is a single drop of blood emanating from the right nostril. NECK: Supple, trachea midline. No JVD or lymphadenopathy. CARDIOVASCULAR: Regular rate and rhythm without murmurs, gallops, or rubs. RESPIRATORY: Breath sounds diminished bilaterally. + accessory muscle use. GASTROINTESTINAL: Abdomen soft, non-tender, nondistended. RECTAL EXAM: No masses or tenderness, stool is brown. Guaiac negative MUSCULOSKELETAL: No cyanosis, or edema. BACK: Nontender without obvious deformity. No CVA tenderness. Data Data Last Documented VS Vital Signs Date Time Temp Pulse Resp B/P (MAP) Pulse Ox O2 Delivery O2 Flow Rate FiO2 06/15/17 12:51 Nasal Cannula 2.00 06/15/17 12:04 100.0 110 20 182/82 (115) 94 Orders Orders Complete Blood Count With Diff (06/15/17 12:31) Comprehensive Metabolic Panel (06/15/17 12:31) B-Type Natriuretic Peptide (06/15/17 12:31) Act Partial Throm Time (Ptt) (06/15/17 12:31) Prothrombin Time / Inr (Pt) (06/15/17 12:31) Magnesium (Mg) (06/15/17 12:31) Troponin I (06/15/17 12:31) Urinalysis - C+S If Indicated (06/15/17 12:31) Blood Culture (06/15/17 12:31) Iv Access Insert/Monitor (06/15/17 12:31) Electrocardiogram (06/15/17 12:31) Ecg Monitoring (06/15/17 12:31) Oximetry (06/15/17 12:31) Oxygen Administration (06/15/17 12:31) Chest, Single Ap (06/15/17 12:31) Sodium Chloride 0.9% Flush (Ns Flush) (06/15/17 12:45) Acetaminophen (Tylenol) (06/15/17 12:45) Precautions (06/15/17 12:44) Lactic Acid Sepsis Protocol (06/15/17 12:52) Type And Screen (06/15/17 13:48) Red Blood Cells (Rbc) (06/15/17 13:50) Blood Product Administration (06/15/17 13:50) Sodium Chlor 0.9% 250 Ml Inj (Ns 250 Ml (06/15/17 14:00) Cefepime Inj (Maxipime Inj) (06/15/17 14:00) Vancomycin Inj (Vancomycin Inj) (06/15/17 14:00) Consult Medical Oncology (06/15/17 ) Admit Order (Ed Use Only) (06/15/17 14:11) Labs Laboratory Tests Test 06/15/17 12:34 06/15/17 12:55 White Blood Count 2.6 TH/MM3 Red Blood Count 2.70 MIL/MM3 Hemoglobin 7.7 GM/DL Hematocrit 22.0 % Mean Corpuscular Volume 81.7 FL Mean Corpuscular Hemoglobin 28.4 PG Mean Corpuscular Hemoglobin Concent 34.8 % Red Cell Distribution Width 17.2 % Platelet Count 26 TH/MM3 Mean Platelet Volume 8.4 FL CBC Comment AUTO DIFF Differential Total Cells Counted 100 Neutrophils % (Manual) 45 % Band Neutrophils % 7 % Lymphocytes % 29 % Monocytes % 2 % Basophils % 2 % Neutrophils # (Manual) 1.7 TH/MM3 Metamyelocytes 8 % Myelocytes 7 % Nucleated Red Blood Cells 1 /100 WBC Differential Comment FINAL DIFF MANUAL Toxic Granulation 1+ Toxic Vacuolation PRESENT Platelet Estimate LOW Platelet Morphology Comment NORMAL Ovalocytes 1+ Acanthocytes 1+ Prothrombin Time 11.9 SEC Prothromb Time International Ratio 1.2 RATIO Activated Partial Thromboplast Time 23.1 SEC Blood Urea Nitrogen 20 MG/DL Creatinine 1.12 MG/DL Random Glucose 110 MG/DL Total Protein 6.8 GM/DL Albumin 3.4 GM/DL Calcium Level 9.4 MG/DL Magnesium Level 1.8 MG/DL Alkaline Phosphatase 74 U/L Aspartate Amino Transf (AST/SGOT) 16 U/L Alanine Aminotransferase (ALT/SGPT) 35 U/L Total Bilirubin 1.6 MG/DL Sodium Level 136 MEQ/L Potassium Level 4.4 MEQ/L Chloride Level 105 MEQ/L Carbon Dioxide Level 23.7 MEQ/L Anion Gap 7 MEQ/L Estimat Glomerular Filtration Rate 63 ML/MIN Troponin I 0.02 NG/ML B-Type Natriuretic Peptide 253 PG/ML Urine Color YELLOW Urine Turbidity CLEAR Urine pH 5.5 Urine Specific [place] 1.021 Urine Protein TRACE mg/dL Urine Glucose (UA) NEG mg/dL Urine Ketones NEG mg/dL Urine Occult Blood NEG Urine Nitrite NEG Urine Bilirubin NEG Urine Urobilinogen 2.0 MG/DL Urine Leukocyte Esterase SMALL Urine RBC 1 /hpf Urine WBC 4 /hpf Urine Squamous Epithelial Cells 1 /hpf Urine Hyaline Casts 1 /lpf Urine Mucus FEW /lpf Microscopic Urinalysis Comment CULT NOT INDICATED Lactic Acid Level 2.2 mmol/L MDM Medical Decision Making Medical Screen Exam Complete: Yes Emergency Medical Condition: Yes Differential Diagnosis Neutropenic fever versus anemia versus CHF exacerbation versus pneumonia versus other Narrative Course 81-year-old male with PMH of myelodysplastic syndrome, CHF, HTN presents to the ED for evaluation of fever and shortness of breath. Gradual onset over the last week. is at bedside and helps to provide the history. She states that the patient had 7 days of chemotherapy last week, blood transfusion 2 days ago and platelet transfusion one week ago. She states that he's been having occasional mild nosebleeds "a drop here and there" for about a week. Patient is followed by Dr. Washington. Temp 100.0, pulse 110, BP 182/82, O2 sats 94% on room air on presentation. Patient was placed on 2 L oxygen by nasal cannula. Physical exam reveals a chronically ill-appearing male with some extra work of breathing. Breath sounds diminished bilaterally. Abdomen soft and nontender. No lower extremity edema. There is a small amount of blood emanating from the right nares. Patient was administered 650 Tylenol by mouth. Neutropenic precautions ordered. EKG rate 109, sinus tachycardia with frequent PVCs. SC interval 168, QRS 91, QTC 3-85 ms. Normal axis. No acute ST changes. Reviewed by Dr. Sam. CXR: No acute cardiac pulmonary findings. Troponin negative 1. BNP: 253 CBC: WBC 2.6. Hemoglobin 7.7. Hematocrit 22, platelets 26. Coags: INR 1.2. CMP: BUN 20, creatinine 1.12. Glucose 110. Lactic acid 2.2. UA: No culture indicated. Patient was administered IV cefepime and vancomycin. Discussed the patient with Dr. Washington who recommends administering 2 units PRBCs and admission to the hospital for likely neutropenic fever. Consult place with [facility]. 2 units PRBCs will be administered pending type and screen. I discussed this plan with the patient and his who are agreeable. I spoke to Dr. Garcia who agrees to accept the patient to the medicine service. Please see medicine notes for disposition. HemaPrompt Point of Care Internal Pos. & Neg. Controls: Passed Fecal Specimen Occult Blood: Negative Becky Richardson Jun 15, 2017 12:40
[2017-06-15] MEDS ORDERED: SODIUM CHLORIDE 0.9% FLUSH 10 ML FLUSH IVF PRN (12:45)
[2017-06-15] MEDS ORDERED: ACETAMINOPHEN 325 MG TAB PO ONE (12:45)
[2017-06-15 13:01] LABS: MEAN CELL VOLUME 81.7 FL (80.0-100.0); MEAN CORPUSCULAR HEMOGLOBIN 28.4 PG (27.0-34.0); MEAN CORPUSCULAR HGB CONC 34.8 % (32.0-36.0); PLATELET COUNT 26 TH/MM3 (150-450); RED CELL DISTRIBUTION WIDTH 17.2 % (11.6-17.2); WHITE BLOOD COUNT 2.6 TH/MM3 (4.0-11.0)
[2017-06-15 13:05] LABS: HEMO FLAGS AUTO DIFF
[2017-06-15 13:09] LABS: ALT (GPT) 35 U/L (12-78); ANION GAP 7 MEQ/L (5-15); AST (GOT) 16 U/L (15-37); BICARBONATE 23.7 MEQ/L (21.0-32.0); BLOOD UREA NITROGEN 20 MG/DL (7-18); CHLORIDE 105 MEQ/L (98-107); GLOMERULAR FILTRATION RATE 63 ML/MIN (>89); MAGNESIUM 1.8 MG/DL (1.5-2.5); POTASSIUM 4.4 MEQ/L (3.5-5.1); SODIUM (NA) 136 MEQ/L (136-145)
[2017-06-15 13:12] LABS: APTT (PATIENT) 23.1 SEC (24.3-30.1); INTERNATIONAL NORMALIZED RATIO 1.2 RATIO; PROTHROMBIN TIME - PATIENT 11.9 SEC (9.8-11.6)
[2017-06-15 13:13] LABS: ALKALINE PHOSPHATASE 74 U/L (45-117); TOTAL BILIRUBIN ADULT 1.6 MG/DL (0.2-1.0)
--- NOTE | 2017-06-15 13:21 | RADRPT ---
EXAM DATE/TIME: 06/15/2017 12:45 [facility] COMPARISON: FLUOROSCOPY FOR CV CATH [facility], May 31, 2017, 0:00. INDICATIONS : Shortness of breath. MEDICAL HISTORY : Hypercholesterolemia. Hypertension Congestive heart failure. SURGICAL HISTORY : None. ENCOUNTER: Initial ACUITY: 1 day PAIN SCORE: 0/10 LOCATION: Bilateral chest FINDINGS: The heart is normal in size. There is an [id number] in good position. There is no pneumothorax. Th e lungs appear clear. The visualized bony structures are grossly intact. CONCLUSION: 1. No acute cardiopulmonary findings. Manav Buckley MD on June 15, 2017 at 13:18 Board Certified Radiologist. This report was verified electronically.
[2017-06-15 13:32] LABS: BANDS 7 % (0-6); BASOPHILS 2 % (0-2); CORRECTED NUCLEATED RBC 1 /100 WBC (0-0); METAMYELOCYTES 8 % (0-1); MYELOCYTES 7 % (0-0); NEUTROPHIL # MANUAL DIFF 1.7 TH/MM3 (1.8-7.7); POLYS (SEG NEUTROPHILS) 45 % (16-70); WBC DIFF SAMPLE 100
[2017-06-15 13:33] LABS: ACANTHOCYTES 1+ (NORMAL); OVALOCYTES 1+ (NORMAL); PLATELET ESTIMATE SMEAR LOW (NORMAL); PLATELET MORPHOLOGY NORMAL (NORMAL)
[2017-06-15 13:37] LABS: SCAN/DIFF FINAL DIFF MANUAL; TOXIC GRANULATION 1+ (NORMAL); TOXIC VACUOLATION PRESENT (NONE SEEN)
[2017-06-15 13:40] LABS: BLOOD, URINE NEG (NEG); COMMENT (UR) CULT NOT INDICATED; CULTURE IF INDICATED CULT NOT INDICATED; GLUCOSE,URINE NEG (NEG); HYALINE CAST, URINE 1 /lpf (RARE); KETONE, URINE NEG (NEG); MUCUS URINE FEW /lpf (OCC); NITRITE,URINE NEG (NEG); PH, URINE 5.5 (5.0-8.5); SQUAMOUS EPITHELIAL CELL URINE 1 /hpf (0-5); URINE COLOR YELLOW (YELLW/STRAW)
[2017-06-15] MEDS ORDERED: VANCOMYCIN INJ 1,000 MG in SODIUM CHLOR 0.9% 250 ML INJ 250 ML IV ONE (14:00)
[2017-06-15] MEDS ORDERED: CEFEPIME INJ 1,000 MG in SODIUM CHLORIDE 0.9% INJ 100 ML IV ONE (14:00)
[2017-06-15] MEDS ORDERED: SODIUM CHLOR 0.9% 250 ML INJ 250 ML IV ONE (14:00)
[2017-06-15 15:18] LABS: LACTIC ACID GHOST NOT REPORTABLE
--- NOTE | 2017-06-15 16:14 | HHI.HP ---
HPI Service [facility] Hospitalists Primary Care Physician Fifi Pro MD Admission Diagnosis neutropenic fever, anemia Chief Complaint: Fever, fatigue, SOB Travel History International Travel<30 Days: No Contact w/Intl Traveler <30 Da: No Traveled to Known Affected Are: No History of Present Illness Mr. Browning is a pleasant 81-year-old male with myelodysplastic syndrome, BPH, and HTN. He was recently admitted to [facility] in 04/2017 for weakness and SOB and was found to be significantly pancytopenic. Pt underwent CT guided BM biopsy which revealed myelodysplastic syndrome and has been following with Dr. Washington. He recently completed his first 7-day cycle of Vidaza last week. He has had blood transfusion about 2 days ago and a platelet transfusion about 1 week ago. Over the last week or so he has had progressive symptoms of fatigue, shortness of breath and fevers. The pts contacted Dr. Washington's office today about the symptoms and he was recommended to go to the ED for further evaluation. Pt was noted to have a low grade fever in the ED of 100.0. His labs revealed WBC count 2.6 with 7% bands, Hgb 7.7/Hct 22.0, Platelet count 26,000. Blood cultures were drawn in the ED. Pt was given Vancomycin and Cefepime in the ED. He denies any headaches, dizziness, chest pain, abdominal pain, nausea, vomiting, melena, hematochezia, BRBPR, lower extremity edema. He has had some slight nose bleeds. Pt takes Metoprolol 12.5mg po BID which was recently restarted about 10 days ago. Review of Systems Constitutional: COMPLAINS OF: Fever Respiratory: COMPLAINS OF: Shortness of breath, DENIES: Cough Cardiovascular: DENIES: Chest pain, Palpitations, Lower Extremity Edema Gastrointestinal: DENIES: Abdominal pain, Constipation, Diarrhea, Nausea, Vomiting Integumentary: DENIES: Rash Neurologic: DENIES: Headache Psychiatric: DENIES: Confusion Past Family Social History Past Medical History Hypertension Myelodysplastic syndrome (04/26/17. BM bx.) in 2017 Pulmonary HTN Severe tricuspid regurgitation Cardiovascular Disease Cataracts Diverticulosis Varicose veins 2D echo (04/25/2017): - Estimated EF 55-60% - Mild thickening of the mitral valve - Moderate mitral valve regurgitation with calcified subvalvular apparatus - Aortic valve sclerosis - Severe tricuspid regurgitation - Estimated PA pressure 78.6mmHg - Dilated inferior vena cava with poor inspiration collapse consistent with elevated right atrial pressure. Past Surgical History [id number] placement in 05/2017 Bone Marrow Biopsy- CT guided in 04/2017 TURP in the 1980s Reported Medications Multiple Vitamin 1 Tab 1 Tab PO DAILY Terazosin (Terazosin HCl) 5 Mg Cap 5 Mg PO HS Finasteride 5 Mg Tab 5 Mg PO DAILY Do not crush. Metoprolol Allergies: Coded Allergies: ANT Inhibitors (Verified Allergy, Intermediate, 04/24/17) Calcium Channel Blocking Agent Dilt (Verified Allergy, Intermediate, 04/24) Family History Noncontributory Social History Hx of tobacco use, smoked 1 ppd x 50 years, quit 21 years ago Hx of regular alcohol use, drinks 1 glass of scotch or gin per day, none since April 2017 Physical Exam Vital Signs Vital Signs Date Time Temp Pulse Resp B/P (MAP) Pulse Ox O2 Delivery O2 Flow Rate FiO2 06/15/17 14:43 99.9 97 12 128/59 (82) 99 Nasal Cannula 2.00 06/15/17 12:51 Nasal Cannula 2.00 06/15/17 12:51 2.00 06/15/17 12:04 100.0 110 20 182/82 (115) 94 Room Air Physical Exam GENERAL: This is a well-nourished, well-developed patient, in no apparent distress. SKIN: No rashes, ecchymoses or lesions. Cool and dry. HEAD: Atraumatic. Normocephalic. No temporal or scalp tenderness. EYES: Pupils equal round and reactive. Extraocular motions intact. No scleral icterus. No injection or drainage. ENT: Nose without bleeding, purulent drainage or septal hematoma. Throat without erythema, tonsillar hypertrophy or exudate. Uvula midline. Airway patent. NECK: Trachea midline. No JVD or lymphadenopathy. Supple, nontender, no meningeal signs. CARDIOVASCULAR: Regular rate and rhythm without murmurs, gallops, or rubs. RESPIRATORY: Clear to auscultation. Breath sounds equal bilaterally. No wheezes , rales, or rhonchi. GASTROINTESTINAL: Abdomen soft, non-tender, nondistended. No hepato-splenomegaly , or palpable masses. No guarding. MUSCULOSKELETAL: Extremities without clubbing, cyanosis, or edema. No joint tenderness, effusion, or edema noted. No calf tenderness. Negative Homans sign bilaterally. NEUROLOGICAL: Awake and alert. Cranial nerves II through XII intact. Motor and sensory grossly within normal limits. Five out of 5 muscle strength in all muscle groups. Normal speech. Laboratory Laboratory Tests Test 06/15/17 12:34 06/15/17 12:55 White Blood Count 2.6 Red Blood Count 2.70 Hemoglobin 7.7 Hematocrit 22.0 Mean Corpuscular Volume 81.7 Mean Corpuscular Hemoglobin 28.4 Mean Corpuscular Hemoglobin Concent 34.8 Red Cell Distribution Width 17.2 Platelet Count 26 Mean Platelet Volume 8.4 CBC Comment AUTO DIFF Differential Total Cells Counted 100 Neutrophils % (Manual) 45 Band Neutrophils % 7 Lymphocytes % 29 Monocytes % 2 Basophils % 2 Neutrophils # (Manual) 1.7 Metamyelocytes 8 Myelocytes 7 Nucleated Red Blood Cells 1 Differential Comment FINAL DIFF MANUAL Toxic Granulation 1+ Toxic Vacuolation PRESENT Platelet Estimate LOW Platelet Morphology Comment NORMAL Ovalocytes 1+ Acanthocytes 1+ Prothrombin Time 11.9 Prothromb Time International Ratio 1.2 Activated Partial Thromboplast Time 23.1 Blood Urea Nitrogen 20 Creatinine 1.12 Random Glucose 110 Total Protein 6.8 Albumin 3.4 Calcium Level 9.4 Magnesium Level 1.8 Alkaline Phosphatase 74 Aspartate Amino Transf (AST/SGOT) 16 Alanine Aminotransferase (ALT/SGPT) 35 Total Bilirubin 1.6 Sodium Level 136 Potassium Level 4.4 Chloride Level 105 Carbon Dioxide Level 23.7 Anion Gap 7 Estimat Glomerular Filtration Rate 63 Troponin I 0.02 B-Type Natriuretic Peptide 253 Urine Color YELLOW Urine Turbidity CLEAR Urine pH 5.5 Urine Specific [place] 1.021 Urine Protein TRACE Urine Glucose (UA) NEG Urine Ketones NEG Urine Occult Blood NEG Urine Nitrite NEG Urine Bilirubin NEG Urine Urobilinogen 2.0 Urine Leukocyte Esterase SMALL Urine RBC 1 Urine WBC 4 Urine Squamous Epithelial Cells 1 Urine Hyaline Casts 1 Urine Mucus FEW Microscopic Urinalysis Comment CULT NOT INDICATED Lactic Acid Level 2.2 Date/Time Source Procedure Growth Status 06/15/17 12:39 Blood Line Aerobic Blood Culture Pending Received 06/15/17 12:39 Blood Line Anaerobic Blood Culture Pending Received Result Diagram: 06/15/17 1234 06/15/17 1234 Imaging Last Impressions Chest X-Ray 06/15/17 1231 Signed Impressions: Service Date/Time: June 12:45 - CONCLUSION: 1. No acute cardiopulmonary findings. MD Ghazal Bolden VTE Risk Assessment Ghazal VTE Risk Assessment: Mod/High Risk (score >= 2) Caprini Risk Assessment Model Point Value = 1 Point Value = 2 Point Value = 3 Point Value = 5 Age 41-60 Minor surgery BMI > 25 kg/m2 Swollen legs Varicose veins or History of unexplained or recurrent spontaneous Oral contraceptives or hormone replacement Sepsis (< 1 month) Serious lung disease, including pneumonia (< 1 month) Abnormal pulmonary function Acute myocardial infarction Congestive heart failure (< 1 month) History of inflammatory bowel disease Medical patient at bed rest Age 61-74 Arthroscopic surgery Major open surgery (> 45 min) Laparoscopic surgery (> 45 min) Malignancy Confined to bed (> 72 hours) Immobilizing plaster cast Central venous access Age >= 75 History of VTE Family history of VTE Factor V Leiden Prothrombin [id number] Lupus anticoagulant Anticardiolipin antibodies Elevated serum homocysteine Heparin-induced thrombocytopenia Other congenital or acquired thrombophilia Stroke (< 1 month) Elective arthroplasty Hip, pelvis, or leg fracture Acute spinal cord injury (< 1 month) Prophylaxis Regimen Total Risk Factor Score Risk Level Prophylaxis Regimen 0-1 Low Early ambulation 2 Moderate Order ONE of the following: *Sequential Compression Device (SCD) *Heparin 5000 units SQ BID 3-4 Higher Order ONE of the following medications: *Heparin 5000 units SQ TID *Enoxaparin/Lovenox 40 mg SQ daily (WT < 150 kg, CrCl > 30 mL/min) *Enoxaparin/Lovenox 30 mg SQ daily (WT < 150 kg, CrCl > 10-29 mL/min) *Enoxaparin/Lovenox 30 mg SQ BID (WT < 150 kg, CrCl > 30 mL/min) AND/OR *Sequential Compression Device (SCD) 5 or more Highest Order ONE of the following medications: *Heparin 5000 units SQ TID (Preferred with Epidurals) *Enoxaparin/Lovenox 40 mg SQ daily (WT < 150 kg, CrCl > 30 mL/min) *Enoxaparin/Lovenox 30 mg SQ daily (WT < 150 kg, CrCl > 10-29 mL/min) *Enoxaparin/Lovenox 30 mg SQ BID (WT < 150 kg, CrCl > 30 mL/min) AND *Sequential Compression Device (SCD) Assessment and Plan Problem List: (1) MDS (myelodysplastic syndrome) ICD Codes: D46.9 - Myelodysplastic syndrome, unspecified Status: Chronic Plan: Pt is an 81-year-old male with myelodysplastic syndrome, BPH, and HTN. He was recently admitted to [facility] in 04[place]2017 for weakness and SOB and was found to be significantly pancytopenic. Pt underwent CT guided BM biopsy which revealed myelodysplastic syndrome and has been following with Dr. Washington. He recently completed his first 7-day cycle of Vidaza last week. He has had blood transfusion about 2 days ago and a platelet transfusion about 1 week ago. Fever SOB Neutropenia, mild Pancytopenia Myelodysplastic syndrome - Over the last week or so he has had progressive symptoms of fatigue, shortness of breath and fevers. - In the ED pt was noted to have a low grade fever in the ED of 100.0. - His labs revealed WBC count 2.6 with 7% bands, Hgb 7.7/Hct 22.0, Platelet count 26,000. - Blood cultures were drawn in the ED. - Pt was given Vancomycin and Cefepime in the ED. - Oncology has been consulted - ANC calculated at 1352 - Case discussed with Dr. Washington, we will hold on continuing the Abx at this time and follow the cultures - Tylenol PRN fever - Its felt that his SOB may be related to his anemia, pt is planned for transfusion. HTN - Cont. Metoprolol 12.5mg po BID - Monitor BPH - Cont. home meds Pulmonary HTN Tricuspid regurg (2) Fever ICD Codes: R50.9 - Fever, unspecified Status: Acute (3) Hypertension ICD Codes: I10 - Essential (primary) hypertension Status: Chronic (4) BPH (benign prostatic hyperplasia) ICD Codes: N40.0 - Benign prostatic hyperplasia without lower urinary tract symptoms Status: Chronic Physician Certification 2 Midnight Certification Type: Admission for Inpatient Services Order for Inpatient Services The services are ordered in accordance with Medicare regulations or non- Medicare payer requirements, as applicable. In the case of services not specified as inpatient-only, they are appropriately provided as inpatient services in accordance with the 2-midnight benchmark. Estimated LOS (days): 2 2 days is the estimated time the patient will need to remain in the hospital, assuming treatment plan goals are met and no additional complications. Post-Hospital Plan: Not yet determined Gretchen Miranda Jun 15, 2017 16:14
[2017-06-15] MEDS ORDERED: CEFEPIME INJ 2,000 MG in SODIUM CHLORIDE 0.9% INJ 100 ML IV SCH (16:15)
[2017-06-15] MEDS ORDERED: ONDANSETRON HCL 4 MG/2 ML VIAL IV PRN (16:15)
[2017-06-15] MEDS ORDERED: METO25TA3 PO (16:24)
[2017-06-15] MEDS ORDERED: RESP: ALBUTEROL CONC 2.5 MG/0.5 ML NEB NEB ONE (16:30)
[2017-06-15] MEDS ORDERED: OXYMETAZOLINE HCL 0.05% 15 ML NASAL SPRAY NASAL ONE (16:30)
--- NOTE | 2017-06-15 17:08 | MB ---
cc: PILO MCELROY,ALVINO Smith M.D. DATE OF CONSULTATION 06/15/17 [address] Mcelroy CHIEF COMPLAINT Dr. Mcelroy requests a consultation for Mr. Browning regarding myelodysplastic syndrome and pancytopenia. HISTORY OF PRESENT ILLNESS Mr. Browning is a pleasant 81-year-old man diagnosed with myelodysplastic syndrome high-risk disease. Bone marrow biopsy was performed 04/26/2017 that shows a myelodysplastic syndrome. His course was complicated by history of hypertension, irregular heart beat, a valvulopathy followed by Dr. Robert and cardiovascular disease. He was started on Vidaza on May 29, 2017 as treatment for his myelodysplastic syndrome. He tolerated his treatment well. Post his treatment, he continues to require blood transfusions. He has required 1-2 units of packed red cells every week. He recently required transfusion of platelets on June 08, 2017. His platelet count was 17,000. Our goal is to keep his hemoglobin around eight. He is chronically leukopenic. He received G-CSF support in clinic. We anticipate the june of his blood counts this week. His describes normal temperatures last night. He was feeling well except for the fatigue. He became more short of breath this morning associated with fevers and for that reason she brought him in. The main reason for bringing him in has been the shortness of breath. His shortness of breath appears to be positional at times. He feels better sitting up. He denies any history of COPD. His temperature on admission was 100.1 and repeat temperature two hours later was is 99.9. Denies any localizing symptoms. Blood cultures were obtained are still negative. Denies any sore throat. No urinary complaints of changes in bowel habits. The rest of his review of systems is negative. He was given the first dose of vancomycin and cefepime. He has tolerated that well. He has had some epistaxis which is mild but recurs in the evening. PAST MEDICAL HISTORY As described above. 1. Cardiovascular disease 2. Cataract, 3. Diverticulosis, 4. Hypertension 5. Chronic anemia, 6. Thrombocytopenia and leukopenia/myelodysplastic syndrome. PAST SURGICAL HISTORY 1. Port placed 2. Bone marrow biopsy 3. TURP 1983 4. Cataract surgery. 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 Denies any tobacco, alcohol or illicit drug use. FAMILY HISTORY Both parents in their 60s MEDICATIONS Current, 1. Finasteride. 2. Hytrin. 3. Zofran p.r.n. PHYSICAL EXAMINATION VITAL SIGNS: Temperature 99.9, heart rate 97, respiratory rate 20, blood pressure 128/59, saturation 99%. GENERAL: Mr. Browning is a well-developed, well-nourished elderly man in no acute distress. HEENT: His pupils are round, reactive to light and accommodation. Oropharynx is clear. NECK: Supple. LUNGS: With diminished breath sounds at the bases. No overt wheezing. CARDIOVASCULAR: Normal rate, rhythm. ABDOMEN: Benign, mildly distended. No fluid wave. LOWER EXTREMITIES: No edema. LABORATORY DATA Significant for pancytopenia. White blood cell count 2.6, hemoglobin 7.7, platelet count 26,000 on 06/15/2017. Renal function is normal. ASSESSMENT/PLAN Mr. Browning is a well-developed, well-nourished elderly man, well-known patient, with multiple medical problems described above. He has underlying myelodysplastic syndrome and is receiving Vidaza. I discussed the needed support to continue as Vidaza tends to not work immediately. I expect a response possibly after the fourth cycle. I have orders to continue to transfuse him for platelet count less than 15,000 and hemoglobin less than 8000 or symptoms. G-CSF support is offered to keep his ANC greater than 1500. He has no localizing symptoms or sign of infection. The case was discussed with Dr. Mcelroy. We will defer further antibiotic therapy. We will monitor for any signs of sepsis. He is neutropenic but ANC is 1700 at his time. I recommend continuing to monitor. Cardiology will be consulted given that he has missed his appointment with Dr. Robert today. He was concerned about a valvulopathy and cardiac cause for shortness of breath. A trial of respiratory treatment is offered. We will see if that helps his respiratory symptoms, hoping that the transfusion of 2 units of red cells would help as well. The case was discussed with Dr. Mcelroy. Afrin is offered for repeat epistaxis. Alvino Valeri E. Deveras, MD RAD/ /4:24 PM /4:51 PM
[2017-06-15] MEDS ORDERED: PILL SPLITTER OTHER PRN (17:45)
[2017-06-15] MEDS: ACETAMINOPHEN 325 MG TAB PO PRN (19:10)
[2017-06-15] MEDS: METOPROLOL TARTRATE 25 MG TAB PO SCH (20:25)
[2017-06-15] MEDS ORDERED: TERAZOSIN HCL 5 MG CAP PO SCH (21:00)
[2017-06-15] MEDS ORDERED: RESP: ALBUTEROL 2.5 MG/IPRATROPIUM 0.5 MG NEB (PRN) NEB (23:45)
[2017-06-15] MEDS ORDERED: FUROSEMIDE 20 MG/2 ML VIAL IV PUSH ONE (23:59)
[2017-06-15] MEDS ORDERED: methylPREDNISolone SOD SUCC 40 MG/1 ML VIAL IV PUSH ONE (23:59)
[2017-06-16] VITALS (12 sets, daily range): BP systolic 128–152; BP diastolic 60–67; PULSE 106–120; RESP 19–22; TEMP 98–102.5; O2SAT 93–96
[2017-06-16] MEDS: ACETAMINOPHEN 325 MG TAB PO PRN ×2 (03:55→12:42)
[2017-06-16] MEDS ORDERED: diphenhydrAMINE HCL 50 MG/ML VIAL IV ONE (04:00)
--- NOTE | 2017-06-16 08:12 | PD.CONS ---
HPI Consult Requested By Primary Care Physician Fifi Pro MD History of Present Illness 81-year-old male with myelodysplastic syndrome, BPH, HTN, pulmonary hypertension , moderate MR, severe TR who presented with shortness of breath and fever. The patient has been having some shortness of breath for the past few months. Received blood transfusion 2 days ago and has been having much or shortness of breath since then. Patient does report lower extremity swelling that is resolved with compression stockings. He has some cough with clear sputum. He denies any chest pain. He and his report some kind of irregular heartbeat/ palpitations in the past. He denies any other history of heart disease. Previous admission in April with diagnosis of MDS. He had a stress test at that time which was negative for ischemia. He had an echocardiogram, results as below. Review of Systems Negative except as stated in the history of present illness Past Family Social History Allergies: Coded Allergies: ANT Inhibitors (Verified Allergy, Intermediate, 04/24/17) Calcium Channel Blocking Agent Dilt (Verified Allergy, Intermediate, 04/24) Past Medical History Hypertension Myelodysplastic syndrome (04/26/17. BM bx.) in 2017 Pulmonary HTN Severe tricuspid regurgitation Cardiovascular Disease Cataracts Diverticulosis Varicose veins 2D echo (04/25/2017): - Estimated EF 55-60% - Mild thickening of the mitral valve - Moderate mitral valve regurgitation with calcified subvalvular apparatus - Aortic valve sclerosis - Severe tricuspid regurgitation - Estimated PA pressure 78.6mmHg - Dilated inferior vena cava with poor inspiration collapse consistent with elevated right atrial pressure. Past Surgical History [id number] placement in 05/2017 Bone Marrow Biopsy- CT guided in 04/2017 TURP in the 1980s Reported Medications Reported Meds & Active Scripts Active Reported Metoprolol Tartrate 25 Mg Tab 12.5 Mg PO BID Multiple Vitamin 1 Tab 1 Tab PO DAILY Terazosin (Terazosin HCl) 5 Mg Cap 5 Mg PO HS Finasteride 5 Mg Tab 5 Mg PO DAILY Do not crush. Active Ordered Medications Current Medications Medications (Trade) Dose Ordered Sig/Ashwin Route Start Time Stop Time Status Last Admin (NS Flush) 2 ml UNSCH PRN IVF 06/15/17 12:45 (Tylenol) 650 mg Q4H PRN PO 06/15/17 16:15 06/16/17 03:55 (Zofran Inj) 4 mg Q6H PRN IV 06/15/17 16:15 (Proscar) 5 mg DAILY PO 06/16/17 09:00 (Hytrin) 5 mg HS PO 06/15/17 21:00 06/15/17 20:24 (Lopressor) 12.5 mg BID PO 06/15/17 21:00 06/15/17 20:25 (Pill Splitter) 1 ea UNSCH PRN OTHER 06/15/17 17:45 (Duoneb Neb) 1 ampule Q4HR NEB PRN NEB 06/15/17 23:45 06/16/17 00:31 Family History Noncontributory Social History Hx of tobacco use, smoked 1 ppd x 50 years, quit 21 years ago Hx of regular alcohol use, drinks 1 glass of scotch or gin per day, none since April 2017 Physical Exam Vital Signs Vital Signs Date Time Temp Pulse Resp B/P (MAP) Pulse Ox O2 Delivery O2 Flow Rate FiO2 06/16/17 06:05 99.9 106 19 130/60 (83) 96 06/16/17 04:00 99.4 114 19 152/67 (95) 94 06/16/17 02:59 102.5 115 20 146/67 95 06/16/17 02:39 100.2 113 19 143/65 96 06/16/17 02:13 100.0 114 20 150/66 95 06/16/17 01:51 98.0 115 19 144/65 96 06/16/17 00:36 96 Nasal Cannula 4.00 06/16/17 00:00 98.7 113 20 144/63 (90) 96 06/15/17 20:00 98.0 115 19 136/78 (97) 97 06/15/17 19:10 117 28 152/65 96 06/15/17 19:00 96 Nasal Cannula 3.00 06/15/17 18:45 93 Nasal Cannula 3.00 06/15/17 18:35 101.0 122 28 174/77 97 06/15/17 18:35 93 Nasal Cannula 2.00 06/15/17 18:16 100.6 119 24 155/67 93 06/15/17 18:11 98.7 127 22 180/84 98 06/15/17 17:00 98.7 127 22 180/84 (116) 93 06/15/17 16:38 12/14/17 16:05 107 24 158/66 (96) 98 Nasal Cannula 2.00 06/15/17 14:43 99.9 97 12 128/59 (82) 99 Nasal Cannula 2.00 06/15/17 12:51 Nasal Cannula 2.00 06/15/17 12:51 2.00 06/15/17 12:04 100.0 110 20 182/82 (115) 94 Room Air Physical Exam GENERAL: Well-developed well-nourished. In no acute distress. NECK: No carotid bruits. No JVD. CARDIOVASCULAR: Tachycardic rate and regular rhythm. No murmur appreciated. RESPIRATORY: No accessory muscle use. Clear to auscultation. Diminished breath sounds in the bases. MUSCULOSKELETAL: No clubbing or cyanosis. No edema. NEUROLOGICAL: Awake and alert. Normal speech. Laboratory Laboratory Tests Test 06/15/17 12:34 06/15/17 12:55 06/15/17 16:21 White Blood Count 2.6 Red Blood Count 2.70 Hemoglobin 7.7 Hematocrit 22.0 Mean Corpuscular Volume 81.7 Mean Corpuscular Hemoglobin 28.4 Mean Corpuscular Hemoglobin Concent 34.8 Red Cell Distribution Width 17.2 Platelet Count 26 Mean Platelet Volume 8.4 CBC Comment AUTO DIFF Differential Total Cells Counted 100 Neutrophils % (Manual) 45 Band Neutrophils % 7 Lymphocytes % 29 Monocytes % 2 Basophils % 2 Neutrophils # (Manual) 1.7 Metamyelocytes 8 Myelocytes 7 Nucleated Red Blood Cells 1 Differential Comment FINAL DIFF MANUAL Toxic Granulation 1+ Toxic Vacuolation PRESENT Platelet Estimate LOW Platelet Morphology Comment NORMAL Ovalocytes 1+ Acanthocytes 1+ Prothrombin Time 11.9 Prothromb Time International Ratio 1.2 Activated Partial Thromboplast Time 23.1 Blood Urea Nitrogen 20 Creatinine 1.12 Random Glucose 110 Total Protein 6.8 Albumin 3.4 Calcium Level 9.4 Magnesium Level 1.8 Alkaline Phosphatase 74 Aspartate Amino Transf (AST/SGOT) 16 Alanine Aminotransferase (ALT/SGPT) 35 Total Bilirubin 1.6 Sodium Level 136 Potassium Level 4.4 Chloride Level 105 Carbon Dioxide Level 23.7 Anion Gap 7 Estimat Glomerular Filtration Rate 63 Troponin I 0.02 B-Type Natriuretic Peptide 253 Urine Color YELLOW Urine Turbidity CLEAR Urine pH 5.5 Urine Specific [place] 1.021 Urine Protein TRACE Urine Glucose (UA) NEG Urine Ketones NEG Urine Occult Blood NEG Urine Nitrite NEG Urine Bilirubin NEG Urine Urobilinogen 2.0 Urine Leukocyte Esterase SMALL Urine RBC 1 Urine WBC 4 Urine Squamous Epithelial Cells 1 Urine Hyaline Casts 1 Urine Mucus FEW Microscopic Urinalysis Comment CULT NOT INDICATED Lactic Acid Level 2.2 0.9 Date/Time Source Procedure Growth Status 06/15/17 12:39 Blood Line Aerobic Blood Culture Pending Received 06/15/17 12:39 Blood Line Anaerobic Blood Culture Pending Received Result Diagram: 06/15/17 1234 06/15/17 1234 Imaging Last Impressions Chest X-Ray 06/15/17 1231 Signed Impressions: Service Date/Time: , June 15, 2017 12:45 - CONCLUSION: 1. No acute cardiopulmonary findings. Manav Buckley MD Assessment and Plan Assessment and Plan 81-year-old male with myelodysplastic syndrome, BPH, HTN, pulmonary hypertension , moderate MR, severe TR who presented with shortness of breath and fever Shortness of breath: Previous echo with severe pulmonary hypertension, severe TR , moderate MR. BNP 253, previously 331 on 04/24/17. Chest x-ray clear. Possible right-sided heart failure from pulmonary hypertension and volume overload, start IV Lasix and monitor response. MDS/pancytopenia/neutropenic fever: Management per primary team and hematology. Caution with transfusion volume. Rd Roth Jun 16, 2017 08:12
[2017-06-16] MEDS: METOPROLOL TARTRATE 25 MG TAB PO SCH (08:50)
[2017-06-16] MEDS ORDERED: FINASTERIDE 5 MG TAB PO SCH (09:00)
[2017-06-16] MEDS ORDERED: FUROSEMIDE 20 MG/2 ML VIAL IV PUSH SCH (09:00)
[2017-06-16 09:39] LABS: HEMATOCRIT 26.1 % (39.0-51.0); MEAN CELL VOLUME 83.5 FL (80.0-100.0); MEAN CORPUSCULAR HEMOGLOBIN 28.9 PG (27.0-34.0); MEAN CORPUSCULAR HGB CONC 34.7 % (32.0-36.0); PLATELET COUNT 39 TH/MM3 (150-450); RED BLOOD COUNT 3.13 MIL/MM3 (4.50-5.90); RED CELL DISTRIBUTION WIDTH 16.5 % (11.6-17.2); WHITE BLOOD COUNT 5.2 TH/MM3 (4.0-11.0)
--- NOTE | 2017-06-16 10:01 | HHI.PR ---
Subjective Remarks Pt struggling to breath still oriented at bedside Objective Vitals awake. labored breathing abdomen retractions heart reg/tachy lung scattered wheeze abd nt ext no edema Vital Signs Date Time Temp Pulse Resp B/P (MAP) Pulse Ox O2 Delivery O2 Flow Rate FiO2 06/16/17 08:06 98.6 120 22 148/64 (92) 93 06/16/17 06:05 99.9 106 19 130/60 (83) 96 06/16/17 04:00 99.4 114 19 152/67 (95) 94 06/16/17 02:59 102.5 115 20 146/67 95 06/16/17 02:39 100.2 113 19 143/65 96 06/16/17 02:13 100.0 114 20 150/66 95 06/16/17 01:51 98.0 115 19 144/65 96 06/16/17 00:36 96 Nasal Cannula 4.00 06/16/17 00:00 98.7 113 20 144/63 (90) 96 06/15/17 20:00 98.0 115 19 136/78 (97) 97 06/15/17 19:10 117 28 152/65 96 06/15/17 19:00 96 Nasal Cannula 3.00 06/15/17 18:45 93 Nasal Cannula 3.00 06/15/17 18:35 101.0 122 28 174/77 97 06/15/17 18:35 93 Nasal Cannula 2.00 06/15/17 18:16 100.6 119 24 155/67 93 06/15/17 18:11 98.7 127 22 180/84 98 06/15/17 17:00 98.7 127 22 180/84 (116) 93 06/15/17 16:38 06/15/17 16:05 107 24 158/66 (96) 98 Nasal Cannula 2.00 06/15/17 14:43 99.9 97 12 128/59 (82) 99 Nasal Cannula 2.00 06/15/17 12:51 Nasal Cannula 2.00 06/15/17 12:51 2.00 06/15/17 12:04 100.0 110 20 182/82 (115) 94 Room Air Result Diagram: 06/15/17 1234 06/15/17 1234 Imaging Last Impressions Chest X-Ray 06/15/17 1231 Signed Impressions: Service Date/Time: June 12:45 - CONCLUSION: 1. No acute cardiopulmonary findings. Manav Buckley MD A/P Problem List: (1) MDS (myelodysplastic syndrome) ICD Codes: D46.9 - Myelodysplastic syndrome, unspecified Status: Chronic Plan: Pt is an 81-year-old male with myelodysplastic syndrome, BPH, and HTN. He was recently admitted to [facility] in 04/2017 for weakness and SOB and was found to be significantly pancytopenic. Pt underwent CT guided BM biopsy which revealed myelodysplastic syndrome and has been following with Dr. Washington. He recently completed his first 7-day cycle of Vidaza last week. He has had blood transfusion about 2 days ago and a platelet transfusion about 1 week ago. Fever SOB Neutropenia, mild Pancytopenia Myelodysplastic syndrome - Over the last week or so he has had progressive symptoms of fatigue, shortness of breath and fevers. - In the ED pt was noted to have a low grade fever in the ED of 100.0. - His labs revealed WBC count 2.6 with 7% bands, Hgb 7.7/Hct 22.0, Platelet count 26,000. - Blood cultures were drawn in the ED. - Pt was given Vancomycin and Cefepime in the ED. - Oncology has been consulted - ANC calculated at 1352 - Case discussed with Dr. Washington, we will hold on continuing the Abx at this time and follow the cultures - Tylenol PRN fever - Its felt that his SOB may be related to his anemia, pt is planned for transfusion. overnight pt had high fever and severe respiratory distress with attempted blood transfusion. stopped on first unit. he has been refusing nebulizer rx. given lasix but unable to make much urine and he and requesting lo. The patient and request comfort only and hospice evaluation. I called Dr Washington and we are in agreement that a hospice evaluation is a reasonable request for the patient.They request dnr status. will give a dose lasix/abx x 1 now in effort to alleviate any respiratory sx's. HTN - Cont. Metoprolol 12.5mg po BID - Monitor BPH - Cont. home meds Pulmonary HTN Tricuspid regurg (2) Fever ICD Codes: R50.9 - Fever, unspecified Status: Acute (3) Hypertension ICD Codes: I10 - Essential (primary) hypertension Status: Chronic (4) BPH (benign prostatic hyperplasia) ICD Codes: N40.0 - Benign prostatic hyperplasia without lower urinary tract symptoms Status: Chronic Salvatore Mcelroy MD Jun 16, 2017 10:01
[2017-06-16 10:26] LABS: HEMO FLAGS AUTO DIFF
[2017-06-16] MEDS ORDERED: FUROSEMIDE 20 MG/2 ML VIAL IV PUSH ONE (11:00)
[2017-06-16] MEDS ORDERED: LEVOFLOXACIN 500 MG PREMIX INJ 100 ML IV ONE (11:00)
[2017-06-16 11:02] LABS: BANDS 16 % (0-6); BASOPHILS 1 % (0-2); BLASTS 3 % (0-0); KERATOCYTES OCC (NORMAL); MYELOCYTES 5 % (0-0); NEUTROPHIL # MANUAL DIFF 3.7 TH/MM3 (1.8-7.7); PLATELET ESTIMATE SMEAR LOW (NORMAL); PLATELET MORPHOLOGY NORMAL (NORMAL); POLYS (SEG NEUTROPHILS) 50 % (16-70); SCAN/DIFF FINAL DIFF MANUAL; WBC DIFF SAMPLE 100
[2017-06-16 11:03] LABS: TOXIC VACUOLATION PRESENT (NONE SEEN)
[2017-06-16] MEDS ORDERED: LORazepam 0.5 MG TAB PO PRN (13:30)
[2017-06-16] MEDS ORDERED: MORPHINE SULFATE 2 MG/ML INJ IV PUSH STA (17:26)
--- NOTE | 2017-06-16 17:43 | PD.ONC.PN ---
Subjective Subjective Remarks "We want to go to hospice" Objective Data Date Time Temp Pulse Resp B/P (MAP) Pulse Ox O2 Delivery O2 Flow Rate FiO2 06/16/17 16:05 98.7 116 20 137/65 (89) 94 06/16/17 12:30 93 Nasal Cannula 3.00 06/16/17 12:06 101.7 110 21 128/60 (82) 94 06/16/17 08:06 98.6 120 22 148/64 (92) 93 06/16/17 08:00 Nasal Cannula 2.00 06/16/17 06:05 99.9 106 19 130/60 (83) 96 06/16/17 04:00 99.4 114 19 152/67 (95) 94 06/16/17 02:59 102.5 115 20 146/67 95 06/16/17 02:39 100.2 113 19 143/65 96 06/16/17 02:13 100.0 114 20 150/66 95 06/16/17 01:51 98.0 115 19 144/65 96 06/16/17 00:36 96 Nasal Cannula 4.00 06/16/17 00:00 98.7 113 20 144/63 (90) 96 06/15/17 20:00 98.0 115 19 136/78 (97) 97 06/15/17 19:10 117 28 152/65 96 06/15/17 19:00 96 Nasal Cannula 3.00 06/15/17 18:45 93 Nasal Cannula 3.00 06/15/17 18:35 101.0 122 28 174/77 97 06/15/17 18:35 93 Nasal Cannula 2.00 06/15/17 18:16 100.6 119 24 155/67 93 06/15/17 18:11 98.7 127 22 180/84 98 06/16/17 06/16/17 06/16/17 07:00 15:00 23:00 Intake Total 218 ml Output Total 150 ml Balance 68 ml Result Diagram: 06/16/17 0809 06/15/17 1234 Laboratory Results Laboratory Tests Test 06/16/17 08:09 White Blood Count 5.2 TH/MM3 Red Blood Count 3.13 MIL/MM3 Hemoglobin 9.1 GM/DL Hematocrit 26.1 % Mean Corpuscular Volume 83.5 FL Mean Corpuscular Hemoglobin 28.9 PG Mean Corpuscular Hemoglobin Concent 34.7 % Red Cell Distribution Width 16.5 % Platelet Count 39 TH/MM3 Mean Platelet Volume 9.8 FL CBC Comment AUTO DIFF Differential Total Cells Counted 100 Neutrophils % (Manual) 50 % Band Neutrophils % 16 % Lymphocytes % 23 % Monocytes % 2 % Basophils % 1 % Neutrophils # (Manual) 3.7 TH/MM3 Myelocytes 5 % Differential Comment FINAL DIFF MANUAL Blastocytes 3 % Toxic Vacuolation PRESENT Platelet Estimate LOW Platelet Morphology Comment NORMAL Keratocytes OCC Culture Results Microbiology Date/Time Source Procedure Growth Status 06/15/17 12:39 Blood Line Aerobic Blood Culture - Preliminary NO GROWTH IN 1 DAY Resulted 06/15/17 12:39 Blood Line Anaerobic Blood Culture - Preliminary NO GROWTH IN 1 DAY Resulted 06/15/17 12:34 Blood Line Aerobic Blood Culture - Preliminary NO GROWTH IN 1 DAY Resulted 06/15/17 12:34 Blood Line Anaerobic Blood Culture - Preliminary NO GROWTH IN 1 DAY Resulted Administered Medications Medications (Trade) Dose Ordered Sig/Ashwin Route PRN Reason Start Time Stop Time Status Last Admin Dose Admin Acetaminophen (Tylenol) 650 mg Q4H PRN PO fever or headache 06/15/17 16:15 06/16/17 12:42 Finasteride (Proscar) 5 mg DAILY PO 06/16/17 09:00 06/16/17 08:50 Terazosin HCl (Hytrin) 5 mg HS PO 06/15/17 21:00 06/15/17 20:24 Metoprolol Tartrate (Lopressor) 12.5 mg BID PO 06/15/17 21:00 06/16/17 08:50 Albuterol/ Ipratropium (Duoneb Neb) 1 ampule Q4HR NEB PRN NEB WHEEZING/SOB 06/15/17 23:45 06/16/17 00:31 Furosemide (Lasix Inj) 20 mg BID@09,18 IV PUSH 06/16/17 09:00 06/16/17 08:50 Objective Remarks GENERAL: Elderly tachypnic man, well-developed patient. SKIN: Warm and dry. HEAD: Normocephalic. EYES: No scleral icterus. No injection or drainage. NECK: Supple, trachea midline. No JVD or lymphadenopathy. LYMPHATIC: No adenopathy. CARDIOVASCULAR: Tachy cardic rate. RESPIRATORY: Breath sounds equal bilaterally. Mild to moderate respiratory distress. Noted accessory muscle use. GASTROINTESTINAL: Abdomen soft, non-tender, nondistended. EXTREMITIES: No cyanosis, or edema. MUSCULOSKELETAL: Adequate muscle tone. NEUROLOGICAL: Awake, alert. Assessment/Plan Problem List: (1) MDS (myelodysplastic syndrome) ICD Codes: D46.9 - Myelodysplastic syndrome, unspecified Status: Chronic Plan: s/p Vidaza requiring transfusion support. Admitted with fevers and worsening SOB. Course complicated by pulmonary HTN, valvular heart disease. Still SOB even after transfusion to hgb > 9.1, platelet 39K no bleeding. Neutropenia mild but fever continue. and patient tired of the disease and treatment that would seen to detract from his quality of life. Desirous of hospice care. Interested in symptom relief. Assessment 81 y/o man with multiple medical problems dx with MDS admitted with SOB and fevers. Plan Admit to care center under hospice care. Provide emotional support. Dose of Morphine once now for air hunger. Dina Washington MD Jun 16, 2017 17:43
--- NOTE | 2017-06-17 12:23 | EKG ---
Date Performed: 06/15/2017 Time Performed: 13:15:30 PTAGE: 81 years EKG: SINUS TACHYCARDIA WITH FREQUENT VENTRICULAR PREMATURE COMPLEXES POSSIBLE LEFT ATRIAL ENLARG EMENT ABNORMAL RHYTHM ECG PREVIOUS TRACING : 04/25/2017 10.05 DOCTOR: Mehrdad Redmond Interpretating Date/Time 06/17/2017 12:21:23
== END 2017-06-16 20:01 | disposition hospice, inpatient (51) | DRG 810 ==
LOC: NEPE 12:02 → NEDA 14:12 → N04B 17:00
PROVIDERS: ADMIT Hospitalist; ATTEND Hospitalist
PROC: 30233N1 Transfusion of Nonautologous Red Blood Cells into Peripheral Vein, Percutaneous Approach (ICD-10-PCS; principal; 2017-06-15)
DX: D61.818 Other pancytopenia (principal); R06.03 Acute respiratory distress; I27.20 Pulmonary hypertension, unspecified; I50.9 Heart failure, unspecified; I11.0 Hypertensive heart disease with heart failure; R50.81 Fever presenting with conditions classified elsewhere; D46.9 Myelodysplastic syndrome, unspecified; N40.0 Benign prostatic hyperplasia without lower urinary tract symptoms; I07.1 Rheumatic tricuspid insufficiency; Z92.21 Personal history of antineoplastic chemotherapy; Z66 Do not resuscitate; Z51.5 Encounter for palliative care; Z87.891 Personal history of nicotine dependence
CPT/HCPCS: 36415; 36430; 36591; 71010; 80048; 80053; 81001; 83605; 83735; 83880; 84484; 85007; 85027; 85610; 85730; 86078; 86850; 86880; 86900; 86901; 86920; 87040; 93005; 94640; 94664; J0692; J1200; J1642; J1940; J1956; J2270; J2920; J3370; J7050; P9016